=== PATIENT | male | born 1955 | race Caucasian/White ===

== ENCOUNTER 2016-09-09 20:36 | Observation (INO) ==
[2016-09-09 21:50] LABS: Basophils % 0.7 %; Eosinophils # 0.1 K/mcL (0.0-0.6); Eosinophils % 2.3 %; Hematocrit 38.7 % (37.5-50.1); Hemoglobin 13.5 g/dL (12.9-16.9); Immature Granulocytes % 0.3 % (0-4); Lymphocytes # 1.4 K/mcL (0.6-4.6); Lymphocytes % 23.8 %; Mean Corpuscular HGB Conc 34.9 g/dL (31.6-35.5); Mean Corpuscular Hemoglobin 32.4 pg (28.0-33.3); Mean Corpuscular Volume 92.8 fL (83.0-100.0); Mean Platelet Volume 10.1 fL (9.4-12.4); Monocytes # 0.7 K/mcL (0.0-1.3); Monocytes % 10.7 %; Neutrophils # 3.8 K/mcL (1.6-8.9); Platelet Count 207 K/mcL (140-400); Red Blood Count 4.17 M/mcL (4.19-5.50); Red Cell Distribution Width 11.2 % (11.5-14.5); Segmented Neutrophils % 62.2 %
[2016-09-09 21:55] LABS: INR 1.1; Prothrombin Time 11.9 Seconds (9.4-12.1)
[2016-09-09 22:04] LABS: BUN/Creatinine Ratio 12 (6-26); Blood Urea Nitrogen 10 mg/dL (8-26); Calcium 9.1 mg/dL (8.6-10.8); Carbon Dioxide 27 mEq/L (19-29); Chloride 103 mEq/L (98-109); Glucose 127 mg/dL (70-99); Osmolality,Calculated 289 (280-300); Potassium 3.7 mEq/L (3.5-4.5); Sodium 139 mEq/L (136-145); eGFR For African Americans > 60 (> 60); eGFR For Non-African Americans > 60 (> 60)
[2016-09-09] MEDS ORDERED: Aspirin 325 MG TABLET PO ONE (22:17)
[2016-09-09] MEDS ORDERED: Nitroglycerin 0.4 MG TAB.SUBL SL PRN (22:17)
[2016-09-09] MEDS ORDERED: levoFLOXacin 500 MG TABLET PO ONE (22:19)
[2016-09-09] MEDS ORDERED: *HR* Heparin 5,000 UNIT/ML VIAL IVP ONE (22:19)
[2016-09-09] MEDS ORDERED: *HR* Heparin 5,000 UNIT/ML VIAL IVP PRN ×2 (22:19)
--- NOTE | 2016-09-09 22:48 | Emergency Department Note ---
Disposition Clinical Impression: Elevated troponin Chest pain Qualifiers: Chest pain type: unspecified Qualified Code(s): R07.9 - Chest pain, unspecified Pneumonia Qualifiers: Pneumonia type: due to unspecified organism Laterality: right Lung location: upper lobe of lung Qualified Code(s): J18.1 - Lobar pneumonia, unspecified organism Disposition: Admitted As Inpatient Condition: Good Time of Disposition: 23:35 Chest Pain HPI - General Chief Complaint: ED Chest Pain Stated Complaint: Chest Pain Time Seen by Provider: 09/09/16 21:38 Source: patient Mode of arrival: ambulatory Limitations: no limitations Vital Signs Reviewed: Yes Nursing Notes Reviewed: Yes - History of Present Illness HPI Narrative: Patient is a 61-year-old male with past medical history of retention, diabetes, prostate cancer. He presents today due to right-sided chest pain. He states that this has occurred in the past couple weeks. However, with a past 3-4 hours , patient has had constant right-sided chest pain with radiation to the right upper extremity and left upper extremity, associated sweating and mild shortness of breath. He did not take any aspirin or nitroglycerin at home for this. He denies any nausea, vomiting, diarrhea, abdominal pain. He does admit to subjective fever and chills. He also admits to productive cough and says that he is on an antibiotic Z-Mauro and has 2 days left for bronchitis. Never had a heart attack or stenting in the past. He had a negative stress test several years ago but no recent stress test or heart. Severity scale (1-10): 3 - Related Data Home Medications Medication Instructions Recorded Confirmed Losartan Potassium [Cozaar] 100 mg PO DAILY 09/07/16 09/09/16 Acetaminophen [Tylenol] 325 mg PO Q6HR PRN 09/09/16 09/09/16 Albuterol Sulfate [Albuterol 2 puff IH Q4H PRN 09/09/16 09/09/16 Inhaler] Aspirin Enteric Coated [Aspirin EC] 81 mg PO DAILY 09/09/16 09/09/16 Cholecalciferol (D-3) [Vitamin D] 5,000 unit PO DAILY 09/09/16 09/09/16 Fluticasone Propionate Nasal 1 spray NS DAILY 09/09/16 09/09/16 [Flonase] Gabapentin [Neurontin] 300 mg PO BID 09/09/16 09/09/16 Metoprolol [Lopressor] 100 mg PO BID 09/09/16 09/09/16 [place]-3/Dha/Epa/Fish Oil [Fish Oil 1,000 mg PO DAILY 09/09/16 09/09/16 1,000 mg Softgel] Omeprazole [PriLOSEC] 40 mg PO DAILY 09/09/16 09/09/16 Rosuvastatin Calcium [Crestor] 10 mg PO HS 09/09/16 09/09/16 Spironolact/Hydrochlorothiazid 1 each PO DAILY 09/09/16 09/09/16 [Aldactazide 25-25 Tablet] Tramadol HCl [Ultram] 50 mg PO Q8H PRN 09/09/16 09/09/16 metFORMIN [Glucophage] 500 mg PO 0800 09/09/16 09/09/16 traZODone [TraZODone] 50 mg PO HS 09/09/16 09/09/16 Previous Rx's Medication Instructions Recorded Azithromycin [Azithromycin 6-Tab 250 mg PO PER PKG DI #6 tab 09/07/16 Pack] Benzonatate [Tessalon] 200 mg PO TID PRN #20 capsule 09/07/16 Ibuprofen [Motrin] 600 mg PO Q6HR PRN #20 tab 09/07/16 Allergies Allergy/AdvReac Type Severity Reaction Status Date / Time lisinopril [From Prinivil] Allergy Hives Verified 09/07/16 13:46 Penicillins [PCN] Allergy Hives Verified 09/07/16 13:46 All systems ED: reviewed and negative except as stated. Constitutional: Reports: fever (Active), chills Cardiovascular: Reports: chest pain Respiratory: Reports: dyspnea. Denies: cough, wheezes Gastrointestinal: Denies: abdominal pain, nausea, vomiting, diarrhea, constipation Musculoskeletal: Denies: back pain Neurological: Denies: headache, weakness, numbness, paresthesias Chest Pain PMH - Past Medical History Medical history: Reports: cancer, diabetes, hypertension - Social History Smoking Status: Never smoker Alcohol use: Reports: occasionally Drug use: Reports: none Physical Exam - General Limitations: no limitations General appearance: alert, in no apparent distress - Head Head exam: atraumatic, normocephalic, normal inspection - Eye Eye exam: Present: normal appearance, PERRL, EOMI - ENT ENT exam: normal exam, normal oropharynx, mucous membranes moist - Neck Neck exam: Present: normal inspection, full ROM, trachea midline - Chest Chest inspection: Present: normal inspection, symmetric chest wall rise. Absent : tenderness - Respiratory Respiratory exam: Present: other (Mild decreased aeration right upper and right lower lobe). Absent: wheezes - Cardiovascular Cardiovascular exam: Present: regular rate, normal rhythm, normal heart sounds - Abdominal Exam Abdominal exam: Present: soft, Non-Tender. Absent: tenderness, distention, guarding, rebound, rigidity - Extremities Exam Extremities exam: Present: normal inspection, full ROM. Absent: tenderness, pedal edema - Neurological Exam Neurological exam: Present: alert, oriented X3 - Psychiatric Psychiatric exam: Present: normal affect, normal mood - Skin Skin exam: Present: warm, dry, intact, normal color Course Course Narrative: Patient hypertensive on presentation. He had decreased aeration in the right upper and right lower lobe. No acute distress on exam. Heart regular rate and rhythm. No tenderness of the chest. No abdominal pain or tenderness. Cardiac workup was completed. Basic blood work showed no major abnormality. However, troponin was elevated 0.04. Patient was given aspirin 325 mg and was started on a heparin drip after discussion of risks versus benefit for possible ACS such as an NSTEMI. Chest x-ray showed possible right upper lobe pneumonia. Patient given Levaquin for this. Patient was admitted to the hospitalist for chest pain rule out and pneumonia. Chest X-Ray 09/09/16 20:41 IMPRESSION: Focal ground-glass airspace opacification in the right upper lobe. Pattern may represent atelectasis or developing pneumonia. D/ / Cesar Arriaga MD / Cesar Arriaga MD Interpreting Provider: Cesar Arriaga MD Vital Signs Temperature 98.4 F 09/09/16 20:38 Pulse Rate 70 09/09/16 20:38 Respiratory Rate 20 09/09/16 20:38 Blood Pressure 183/90 09/09/16 20:38 O2 Sat by Pulse Oximetry 95 09/09/16 20:38 Temperature 98.3 F 09/10/16 07:04 Pulse Rate 63 09/10/16 07:04 Respiratory Rate 18 09/10/16 07:34 Blood Pressure 152/82 09/10/16 07:04 O2 Sat by Pulse Oximetry 96 09/10/16 07:34 Oxygen Delivery Oxygen Delivery Room Air Chest Pain - MDM Narrative Medical decision making narrative: Patient hypertensive on presentation. He had decreased aeration in the right upper and right lower lobe. No acute distress on exam. Heart regular rate and rhythm. No tenderness of the chest. No abdominal pain or tenderness. Cardiac workup was completed. Basic blood work showed no major abnormality. However, troponin was elevated 0.04. Patient was given aspirin 325 mg and was started on a heparin drip after discussion of risks versus benefit for possible ACS such as an NSTEMI. Chest x-ray showed possible right upper lobe pneumonia. Patient given Levaquin for this. Patient was admitted to the hospitalist for chest pain rule out and pneumonia. - Medical Records Medical records reviewed: Yes I reviewed the patient's medical records. - Lab Data Lab results reviewed: Yes I reviewed the patient's lab results. Result diagrams: 09/10/16 05:07 09/10/16 05:07 Lab Results 09/09/16 09/09/16 09/09/16 Range/Units 21:42 21:42 21:42 WBC 6.1 (4.3-11.1) K/mcL RBC 4.17 L (4.19-5.50) M/mcL Hgb 13.5 (12.9-16.9) g/dL Hct 38.7 (37.5-50.1) % MCV 92.8 (83.0-100.0) fL MCH 32.4 (28.0-33.3) pg MCHC 34.9 (31.6-35.5) g/dL RDW 11.2 L (11.5-14.5) % Plt Count 207 (140-400) K/mcL MPV 10.1 (9.4-12.4) fL Immature Gran % 0.3 (0-4) % Seg Neutrophils % 62.2 % Lymphocytes % 23.8 % Monocytes % 10.7 % Eosinophils % 2.3 % Basophils % 0.7 % Neutrophils # 3.8 (1.6-8.9) K/mcL Lymphocytes # 1.4 (0.6-4.6) K/mcL Monocytes # 0.7 (0.0-1.3) K/mcL Eosinophils # 0.1 (0.0-0.6) K/mcL Basophils # 0.0 (0.0-0.2) K/mcL PT 11.9 (9.4-12.1) Seconds INR 1.1 APTT 36.0 (26.0-36.0) Seconds Sodium 139 (136-145) mEq/L Potassium 3.7 (3.5-4.5) mEq/L Chloride 103 (98-109) mEq/L Carbon Dioxide 27 (19-29) mEq/L BUN 10 (8-26) mg/dL Creatinine 0.84 (0.72-1.25) mg/dL Est GFR ( Amer) > 60 (> 60) Est GFR (Non-Af Amer) > 60 (> 60) BUN/Creatinine Ratio 12 (6-26) Glucose 127 H (70-99) mg/dL Calculated Osmolality 289 (280-300) Calcium 9.1 (8.6-10.8) mg/dL Troponin I (0-0.03) ng/mL 09/09/16 Range/Units 21:42 WBC (4.3-11.1) K/mcL RBC (4.19-5.50) M/mcL Hgb (12.9-16.9) g/dL Hct (37.5-50.1) % MCV (83.0-100.0) fL MCH (28.0-33.3) pg MCHC (31.6-35.5) g/dL RDW (11.5-14.5) % Plt Count (140-400) K/mcL MPV (9.4-12.4) fL Immature Gran % (0-4) % Seg Neutrophils % % Lymphocytes % % Monocytes % % Eosinophils % % Basophils % % Neutrophils # (1.6-8.9) K/mcL Lymphocytes # (0.6-4.6) K/mcL Monocytes # (0.0-1.3) K/mcL Eosinophils # (0.0-0.6) K/mcL Basophils # (0.0-0.2) K/mcL PT (9.4-12.1) Seconds INR APTT (26.0-36.0) Seconds Sodium (136-145) mEq/L Potassium (3.5-4.5) mEq/L Chloride (98-109) mEq/L Carbon Dioxide (19-29) mEq/L BUN (8-26) mg/dL Creatinine (0.72-1.25) mg/dL Est GFR ( Amer) (> 60) Est GFR (Non-Af Amer) (> 60) BUN/Creatinine Ratio (6-26) Glucose (70-99) mg/dL Calculated Osmolality (280-300) Calcium (8.6-10.8) mg/dL Troponin I 0.04 H* (0-0.03) ng/mL - Radiology Data Radiology results reviewed: Yes I reviewed the patient's radiology results. Chest X-Ray 09/09/16 20:41 IMPRESSION: Focal ground-glass airspace opacification in the right upper lobe. Pattern may represent atelectasis or developing pneumonia. D/ / Cesar Arriaga MD / Cesar Arriaga MD Interpreting Provider: Cesar Arriaga MD - EKG Data EKG attestation: Yes I reviewed and interpreted this EKG. EKG results narrative: 09/09/2016 at 20:40. Sinus rhythm. Rate 67. CO 147. QRS 84. QTC 415. Normal axis. No acute ST elevation or depression. Heart Score - Score History: Moderately Suspicious EKG: Normal Age: 45-65 Risk Factors: 1-2 risk factors Troponin: 1-3x normal limit HEART Score Total: 4 S.B.A.R. - S.B.A.R. Situation: Demographics, MOA Background: Presenting Complaint, Relevant PMH, Meds, & Allergies Assessment: Vital Signs, Course and respsone to treatment, Exam Concerns, Patient/Family Expectation, Pertinant Lab Results, Outstanding Labs Recommendation: Barrier(s) to disposition, Recommendation based on pending studies, treatments, or consults S.B.A.R. Report Given to: Dr. Gloria Alas Repor Time: 23:34 Attestation Statement - Attestation Attestation: I examined this patient and my medical decision-making was reviewed with the INSTRUMENTATION AND CONTROLS TECHNICIAN/PA/Advanced Practice Nurse/Resident Physician. I agree with the documented findings, disposition and treatment plan as described except to the extent set forth below. Patient with chest pain. Patient states the pain is rated some into his back and some into his arms. No cardiac history. States he had a stress test years ago. On examination he is in no distress. Stable vitals. Lungs clear. Plan. The patient has a normal EKG. No ST segment changes or T-wave inversions. The positive troponin at 0.04. He is given a nitroglycerin trial. We will start him on heparin. Patient will be admitted to medicine. PE considered with his history of prostate cancer. He is not tachycardic or hypoxic. Chest pain is believed to be cardiac. He started on a heparin drip. Patient pain-free at the time of admission. 30 minutes of critical care course of separately billable procedures.
[2016-09-09] MEDS: Heparin 25,000 UNIT/500 ML D5W 25,000 UNIT/500 ML MLS IVC SCH (23:27)
[2016-09-10] MEDS ORDERED: Naloxone 0.4 MG/ML INJ IVP PRN (02:56)
[2016-09-10] MEDS ORDERED: Ondansetron 4 MG/2 ML VIAL IVP PRN (02:56)
[2016-09-10] MEDS ORDERED: Acetaminophen 325 MG TABLET PO PRN (02:56)
[2016-09-10] MEDS ORDERED: Benzonatate 100 MG CAPSULE PO PRN (02:58)
[2016-09-10] MEDS ORDERED: traMADol 50 MG TABLET PO PRN (02:58)
[2016-09-10] MEDS ORDERED: D5% in Water 1,000 ML IVC PRN (03:01)
[2016-09-10] MEDS ORDERED: Dextrose Gel 15 GM PO PRN ×2 (03:01)
[2016-09-10] MEDS ORDERED: *HR* Dextrose 50 % in Water (Syg) 50 ML SYRINGE IVP PRN (03:01)
--- NOTE | 2016-09-10 04:20 | Internal Med History&Physical ---
Date of Encounter: 09/10/16 Time of Encounter: 02:45 Assessment and Plan (1) Chest pain Current visit: Yes Status: Acute probably related to Pneumonia and pleuritic pain. Does have slight Troponin elevation, to consider ACS. Started on IV Heparin drip by ER; cycle Troponins and consider holding anticoagulation if trending down. Telemetry monitoring. Check 2D Echocardiogram. Troponin elevation could be due to uncontrolled HTN at Triage; Qualifiers: Chest pain type: unspecified Qualified Code(s): R07.9 - Chest pain, unspecified (2) Pneumonia Current visit: Yes Status: Acute chest XRay shows possible RUL ground glass opacities. Continue PO Levaquin; does not require supplemental O2 at this time; Qualifiers: Pneumonia type: due to unspecified organism Laterality: right Lung location: upper lobe of lung Qualified Code(s): J18.1 - Lobar pneumonia, unspecified organism (3) Essential hypertension Current visit: Yes Status: Chronic uncontrolled at admission; currently better controlled; resume home meds; (4) Diabetes mellitus Current visit: Yes Status: Chronic Accucheck blood glucose monitoring with sliding scale insulin; diabetic diet; Qualifiers: Diabetes mellitus type: type 2 Diabetes mellitus complication status: with unspecified complications Diabetes mellitus buttermaker insulin use: without penitentiary use Qualified Code(s): E11.8 - Type 2 diabetes mellitus with unspecified complications (5) Prostate cancer Current visit: Yes Status: Chronic outpatient Oncology f/up; noted to have recent recurrence, undergoing evaluation for radiochemotherapy; Internal Medicine - H&P: HPI Chief complaint: Chest pain Admitted From: Emergency Dept Plans for Post Hospital Care: Home History of present illness: Mr. Tomlin is a 61 year old male with history of hypertension and diabetes, who presents with complaints of sudden onset of right-sided chest pain that started earlier this evening. 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 No similar previous episodes. Patient was recently evaluated by his primary care provider for respiratory symptoms of cough and mild dyspnea, chills and has been prescribed Z-Mauro, which she has been using. He currently reports productive cough with greenish sputum associated with subjective chills and some shortness of breath. Last stress test has been a few years back, at which time it was normal. Past Med Surg Social Fam HX - Past Medical History Medical history: cancer (Prostate cancer status post resection), diabetes, hypertension - Past Surgical History Surgical History: other (Tonsillectomy, TURP) - Social History Smoking Status: Former smoker Smokeless Tobacco Status: Yes (chews tobacco) Alcohol use: occasionally Drug use: none Occupational status: employed Current living situation: Home, With Family Activity Level: Independent ambulation Recent Out of Country Travel Within the Last 8 Weeks: No Exposure or Possible Exposure to Illness During Travel: No - Family History Father Hx Family Cardiac Disorders: Yes (CAD) Hx Family Endocrine Disorder: Yes (DM) Brother Hx Family Cancer: Yes (prostate cancer) Internal Medicine - H&P: Meds Azithromycin [Azithromycin 6-Tab Pack] 250 mg PO PER PKG DI #6 tab 09/07/16 [Rx] Benzonatate [Tessalon] 200 mg PO TID PRN #20 capsule 09/07/16 [Rx] Ibuprofen [Motrin] 600 mg PO Q6HR PRN #20 tab 09/07/16 [Rx] Losartan Potassium [Cozaar] 100 mg PO DAILY 09/07/16 [History] Acetaminophen [Tylenol] 325 mg PO Q6HR PRN 09/09/16 [History] Albuterol Sulfate [Albuterol Inhaler] 2 puff IH Q4H PRN 09/09/16 [History] Aspirin Enteric Coated [Aspirin EC] 81 mg PO DAILY 09/09/16 [History] Cholecalciferol (D-3) [Vitamin D] 5,000 unit PO DAILY 09/09/16 [History] Fluticasone Propionate Nasal [Flonase] 1 spray NS DAILY 09/09/16 [History] Gabapentin [Neurontin] 300 mg PO BID 09/09/16 [History] Metoprolol [Lopressor] 100 mg PO BID 09/09/16 [History] [place]-3/Dha/Epa/Fish Oil [Fish Oil 1,000 mg Softgel] 1,000 mg PO DAILY 09/09/16 [History] Omeprazole [PriLOSEC] 40 mg PO DAILY 09/09/16 [History] Rosuvastatin Calcium [Crestor] 10 mg PO HS 09/09/16 [History] Spironolact/Hydrochlorothiazid [Aldactazide 25-25 Tablet] 1 each PO DAILY [History] Tramadol HCl [Ultram] 50 mg PO Q8H PRN 09/09/16 [History] metFORMIN [Glucophage] 500 mg PO 0800 09/09/16 [History] traZODone [TraZODone] 50 mg PO HS 09/09/16 [History] Allergies lisinopril [From Prinivil] Allergy (Verified 09/07/16 13:46) Hives Penicillins [PCN] Allergy (Verified 09/07/16 13:46) Hives All Systems PM: A 10-system review of systems was performed and is negative for pertinent findings except as documented above in the HPI. - Constitutional Constitutional: chills, fever(s), weakness - EENT Eyes: no change in vision, no discharge, no pain, no photophobia Ears: no ear discharge, no ear pain, no tinnitus Nose, mouth and throat: no dysphagia, no nasal discharge, no neck pain, no sore throat - Cardiovascular Cardiovascular ROS IM: chest pain - Respiratory Respiratory: cough, dyspnea, chest congestion, excessive phlegm production - Gastrointestinal Gastrointestinal: no abdominal pain, no diarrhea, no hematemesis, no hematochezia, no melena, no nausea, no vomiting - Musculoskeletal Musculoskeletal ROS IM: no numbness, no tingling - Integumentary Integumentary IM: no rash, no unusual bruising - Neurological Neurological ROS: no confusion, no convulsions, no focal weakness, no numbness, no tingling, no tremor(s) - Hematologic/Lymphatic Hematologic/Lymphatic: no easy bruising - Constitutional Vitals: Temp Pulse Resp BP Pulse Ox 97.9 F 66 17 157/99 96 09/10/16 00:30 09/10/16 00:30 09/10/16 04:03 09/10/16 00:30 09/10/16 04:03 General appearance: Present: A&O X 3, answers questions appropriately - Respiratory Respiratory exam: Present: CTAB. Absent: accessory muscle use, rales, rhonchi, wheezes - Cardiovascular Cardiovascular exam: Present: RRR, +S1, +S2. Absent: diastolic murmur, gallop, rubs, systolic murmur - GI/Abdominal GI/Abdominal exam: Present: normal bowel sounds, soft, no peritoneal signs. Absent: distended, tenderness - Extremities Exam Extremities exam: Present: full ROM, warm, radial pulses palpable and symetrical. Absent: calf tenderness, cyanotic, pedal edema - Neurological Exam Neurological exam: Present: CN II-XII intact, oriented X3, no focal deficits. Absent: pronater drift, facial droop, speech deficit - Skin Skin exam: Present: dry, intact Internal Med - H&P Results - Labs CBC & Chem 7: 09/09/16 21:42 09/09/16 21:42 - EKG Data -: EKG Interpreted by Myself EKG shows normal: sinus rhythm Rate: normal
[2016-09-10 05:25] LABS: Basophils % 0.6 %; Eosinophils # 0.2 K/mcL (0.0-0.6); Eosinophils % 3.9 %; Hematocrit 39.2 % (37.5-50.1); Hemoglobin 13.5 g/dL (12.9-16.9); Immature Granulocytes % 0.4 % (0-4); Lymphocytes # 2.3 K/mcL (0.6-4.6); Lymphocytes % 43.8 %; Mean Corpuscular HGB Conc 34.4 g/dL (31.6-35.5); Mean Corpuscular Hemoglobin 31.9 pg (28.0-33.3); Mean Corpuscular Volume 92.7 fL (83.0-100.0); Mean Platelet Volume 10.2 fL (9.4-12.4); Monocytes # 0.6 K/mcL (0.0-1.3); Monocytes % 10.7 %; Neutrophils # 2.1 K/mcL (1.6-8.9); Platelet Count 203 K/mcL (140-400); Red Blood Count 4.23 M/mcL (4.19-5.50); Red Cell Distribution Width 11.3 % (11.5-14.5); Segmented Neutrophils % 40.6 %
[2016-09-10 05:31] LABS: BUN/Creatinine Ratio 11 (6-26); Blood Urea Nitrogen 9 mg/dL (8-26); Carbon Dioxide 25 mEq/L (19-29); Chloride 104 mEq/L (98-109); Chol/HDL Ratio 4.2 (0-4.9); Cholesterol 106 mg/dL (< 200); Glucose 140 mg/dL (70-99); HDL Cholesterol 25 mg/dL (40-59); LDL Cholesterol,Calculated 51 mg/dL (0-99); Osmolality,Calculated 287 (280-300); Potassium 3.5 mEq/L (3.5-4.5); Sodium 138 mEq/L (136-145); Triglycerides 152 mg/dL (< 150); eGFR For African Americans > 60 (> 60); eGFR For Non-African Americans > 60 (> 60)
[2016-09-10] MEDS: Insulin LISPRO 300 UNITS/3 ML VIAL SQ SCH ×4 (07:45→20:19)
[2016-09-10] MEDS ORDERED: Spironolactone 25 MG TABLET PO SCH (09:00)
--- NOTE | 2016-09-10 09:48 | Cardiology Consult Note ---
Date of Encounter: 09/10/16 Time of Encounter: 08:30 Assessment and Plan (1) Pneumonia Current Visit: Yes Status: Acute Per cardiology: -Right upper lobe pneumonia per chest x-ray. -Admits to right sided chest pain, productive cough with green sputum, and fever. -On ATB. -Management per primary service. Qualifiers: Pneumonia type: due to unspecified organism Laterality: right Lung location: upper lobe of lung Qualified Code(s): J18.1 - Lobar pneumonia, unspecified organism (2) Chest pain Current Visit: Yes Status: Acute Per cardiology: -Patient admits to right sided chest pain, consistent with pneumonia per chest x -ray. -Denies left sided chest pain. -Denies pain with excertion. -Will continue to monitor. Qualifiers: Chest pain type: unspecified Qualified Code(s): R07.9 - Chest pain, unspecified (3) Elevated troponin Current Visit: Yes Status: Acute Per cardiology: -No known history of CAD. -ELevated troponin 0.04, 1.73, 1.72. -Troponin elevated in the setting on pneumonia, and HTN. -BP 180s on admission -Denies left sided chest pain. Denies chest pain with excertion. -Admits to right sided chest pain that was constant. -ON heparin drip. -ON asa, statin, beta ibis, and ARB. -Echo pending. -Repeat troponin pending. -Further recommendations pending echo and repeat troponin. -Will order cardiac rehab. (4) Essential hypertension Current Visit: Yes Status: Chronic Per cardiology: -Known history of HTN. -Hypertensive on admission with SBP 180s. -BPs better controlled now with SBP 130-150s. -On beta ibis and ARB. -Will continue to monitor. (5) Prostate cancer Current Visit: Yes Status: Chronic Per cardiology: -Known history of prostate CA. -Patient states recurrence. -Follows with oncology. -Management per primary service. Discussion w patient/family: The assessment and plan as outlined above was discussed with the patient and/or family members who expressed understanding and agreement. All questions were answered. Thank you for involving us in the care of your patient. Please call with any questions. Discussed and reviewed with . History of Present Illness Consult date: 09/10/16 Requesting physician: Elena Dunn Consult reason: elevated troponin, chest pain Chief complaint: chest pain History of present illness: Mr. Tomlin is a 61 year old male with a relevant past medical history of hypertension, hyperlipidemia, DM, previous smoker with a 60pack year history. Patient states he quit smoking 3.5 years ago. Patient states he has not been feeling well since Thursday. Patient states he has had a fever and chills. Patient states on Thursday, he developed right sided chest pain and productive cough with green sputum. Patient states he went to urgent care and was being treated for bronchitis. Patient states yesterday pain increased so he presented to ER. Patient states chest pain was mostly located in right side of chest and was dull. Patient admits to pain radiating to left chest. Patient denies chest pain with excertion. Patient denies aggervating or alleviating factors for chest pain. Patient denies previous cardiac history, states he had a negative stress test several years ago. Patient states father with cardiac history and MS and in his 70s. Past Med Surg Social Fam HX - Past Medical History Attestation: Yes The following information was validated with the patient. Source: patient, old records reviewed, obtained from family Medical history: cancer, diabetes, hypertension - Past Surgical History Surgical History: other (Tonsillectomy, TURP) - Social History Smoking Status: Never smoker Smokeless Tobacco Status: Yes (chews tobacco) Alcohol use: occasionally Drug use: none - Family History Father Hx Family Cardiac Disorders: Yes (CAD) Hx Family Endocrine Disorder: Yes (DM) Brother Hx Family Cancer: Yes (prostate cancer) Medications and Allergies Azithromycin [Azithromycin 6-Tab Pack] 250 mg PO PER PKG DI #6 tab 09/07/16 [Rx] Benzonatate [Tessalon] 200 mg PO TID PRN #20 capsule 09/07/16 [Rx] Ibuprofen [Motrin] 600 mg PO Q6HR PRN #20 tab 09/07/16 [Rx] Losartan Potassium [Cozaar] 100 mg PO DAILY 09/07/16 [History] Acetaminophen [Tylenol] 325 mg PO Q6HR PRN 09/09/16 [History] Albuterol Sulfate [Albuterol Inhaler] 2 puff IH Q4H PRN 09/09/16 [History] Aspirin Enteric Coated [Aspirin EC] 81 mg PO DAILY 09/09/16 [History] Cholecalciferol (D-3) [Vitamin D] 5,000 unit PO DAILY 09/09/16 [History] Fluticasone Propionate Nasal [Flonase] 1 spray NS DAILY 09/09/16 [History] Gabapentin [Neurontin] 300 mg PO BID 09/09/16 [History] Metoprolol [Lopressor] 100 mg PO BID 09/09/16 [History] [place]-3/Dha/Epa/Fish Oil [Fish Oil 1,000 mg Softgel] 1,000 mg PO DAILY 09/09/16 [History] Omeprazole [PriLOSEC] 40 mg PO DAILY 09/09/16 [History] Rosuvastatin Calcium [Crestor] 10 mg PO HS 09/09/16 [History] Spironolact/Hydrochlorothiazid [Aldactazide 25-25 Tablet] 1 each PO DAILY [History] Tramadol HCl [Ultram] 50 mg PO Q8H PRN 09/09/16 [History] metFORMIN [Glucophage] 500 mg PO 0800 09/09/16 [History] traZODone [TraZODone] 50 mg PO HS 09/09/16 [History] Allergies lisinopril [From Prinivil] Allergy (Verified 09/07/16 13:46) Hives Penicillins [PCN] Allergy (Verified 09/07/16 13:46) Hives All Systems Review: A 10-system review of systems was performed and is negative for pertinent findings except as documented above in the HPI. - Cardiovascular Cardiovascular: as per HPI, chest pain at rest - Respiratory Respiratory: cough, dyspnea Physical Examination Vital Signs, Last 4 Hours Temp Pulse Resp BP Pulse Ox 09/10/16 07:34 18 96 09/10/16 07:04 98.3 F 63 16 152/82 97 General: Conversant, No Apparent Distress HEENT: Atraumatic, Normocephaly, Mucus Membranes Moist Neck: No JVD, Normal carotid pulses Cardiac: Reg Rate and Rhythm, Normal S1 and S2, No Murmur Lungs: Other (Right lung with diminished breath sounds. ) Neuro: Alert and responsive, No focal deficits noted Abdomen: Soft, Non-Tender Skin: No rashes noted on visualized skin Musculoskeletal: No Chest Wall Tenderness Extremities: No Clubbing, No Cyanosis, No Edema, Normal Pulses Results 09/10/16 05:07 09/10/16 05:07 Lab Results Impressions Chest X-Ray 09/09/16 20:41 IMPRESSION: Focal ground-glass airspace opacification in the right upper lobe. Pattern may represent atelectasis or developing pneumonia. D/ / Cesar Arriaga MD / Cesar Arriaga MD Interpreting Provider: Cesar Arriaga MD Active Medications Acetaminophen (Tylenol) 650 mg PO Q6HR PRN PRN Reason: Mild Pain (1-3) Stop: 03/12/17 02:57 Albuterol Sulfate (Albuterol Inhaler) 2 puff IH [id number] WILLIE Stop: 03/12/17 04:01 Last Admin: 09/10/16 07:32 Dose: 2 puff Aspirin (Aspirin Ec) 81 mg PO DAILY [facility] Stop: 03/12/17 09:01 Benzonatate (Tessalon) 200 mg PO TID PRN PRN Reason: Cough Dextrose/Water (Dextrose 50% (Syg)) 25 ml IVP AD PRN PRN Reason: Hypoglycemia Stop: 03/12/17 03:02 Fluticasone Propionate (Flonase) 50 mcg NS DAILY WILLIE PRN Reason: Protocol Stop: 03/12/17 09:01 Gabapentin (Neurontin) 300 mg PO BID [facility] Stop: 03/12/17 09:01 Glucagon (Glucagen) 1 mg IM ONCE PRN PRN Reason: Hypoglycemia Stop: 03/12/17 03:02 Glucose (Gluctose) 15 gm PO ONCE PRN PRN Reason: Hypoglycemia Stop: 03/12/17 03:02 Glucose (Gluctose) 30 gm PO ONCE PRN PRN Reason: Hypoglycemia Stop: 03/12/17 03:02 Heparin Sodium (Porcine) (Heparin) 4,000 unit IVP Q6HR PRN PRN Reason: SEE COMMENTS Stop: 03/11/17 22:20 Heparin Sodium (Porcine) (Heparin) 2,000 unit IVP Q6H PRN PRN Reason: SEE COMMENTS Stop: 03/11/17 22:20 Hydrochlorothiazide (Hydrochlorothiazide) 25 mg PO DAILY WILLIE Stop: 03/12/17 09:01 Heparin Sodium/Dextrose (Heparin 25,000 Unit/500 Ml D5w) 25,000 unit in 500 mls @ 26.127 mls/hr IVC .Q19H9M WILLIE; 12 UNIT/KG/HR PRN Reason: Protocol Stop: 03/11/17 22:31 Last Titration: 09/10/16 05:07 Dose: 12 unit/kg/hr, 26.127 mls/hr Dextrose (Dextrose 5%) 1,000 mls @ 100 mls/hr IVC .Q10H PRN PRN Reason: HYPOGLYCEMIA Stop: 03/12/17 03:02 Insulin Human Lispro (Humalog) 0 units SQ TIDAC WILLIE PRN Reason: Protocol Stop: 03/12/17 07:31 Last Admin: 09/10/16 07:45 Dose: Not Given Insulin Human Lispro (Humalog) 0 units SQ HS WILLIE PRN Reason: Protocol Stop: 03/12/17 21:01 Losartan Potassium (Cozaar) 100 mg PO DAILY [facility] Stop: 03/12/17 09:01 Metoprolol Tartrate (Lopressor) 100 mg PO BID [facility] Stop: 03/12/17 09:01 Naloxone HCl (Narcan) 0.4 mg IVP Q2MIN PRN PRN Reason: Opioid Reversal Stop: 03/12/17 02:57 Nitroglycerin (Nitroglycerin) 0.4 mg SL Q5MIN PRN PRN Reason: Chest Pain Stop: 03/11/17 22:18 Omeprazole (Prilosec) 40 mg PO DAILY [facility] Stop: 03/12/17 09:01 Ondansetron HCl (Zofran) 4 mg IVP Q8HR PRN PRN Reason: Nausea And Vomiting Stop: 03/12/17 02:57 Pharmacy Profile Note (Patient Taking Own Medication) 0 each PO DAILY [facility] Stop: 03/12/17 09:01 Simvastatin (Zocor) 40 mg PO HS [facility] Stop: 03/12/17 21:01 Spironolactone (Aldactone) 1 mg PO DAILY [facility] Stop: 03/12/17 09:01 Tramadol HCl (Ultram) 50 mg PO Q8H PRN PRN Reason: Pain Stop: 03/12/17 02:59 Trazodone HCl (Trazodone) 50 mg PO HS [facility] Stop: 03/12/17 21:01 Vitamin D (Vitamin D) 1,000 unit PO DAILY WILLIE Stop: 03/12/17 09:01 Laboratory Tests 09/09/16 09/10/16 09/10/16 21:42 05:07 05:07 Hgb 13.5 Creatinine Troponin I 0.04 H* 1.73 H* Triglycerides Cholesterol LDL Cholesterol, Calc HDL Cholesterol 09/10/16 09/10/16 05:07 08:55 Hgb Creatinine 0.81 Troponin I 1.72 H* Triglycerides 152 H Cholesterol 106 LDL Cholesterol, Calc 51 HDL Cholesterol 25 L - Imaging and Cardiology Chest Xray: report reviewed Echo: pending - EKG Interpretation EKG results cardiology: personally reviewed (ECG reviewed with sinus rhythm, HR 67.), other (Telemetry reviewed with average HR 63, Minimum HR 52 at 0224. PVCs and PACs noted.) Consult Discharge Plan - Plan Referrals: Rudi Gutierres DO [Primary Care Provider] -
[2016-09-10] MEDS: Aspirin Enteric Coated 81 MG Tablet PO SCH (11:59)
[2016-09-10] MEDS: Fluticasone Propionate Nasal 50 MCG/SPRAY BOTTLE NS SCH (12:00)
[2016-09-10] MEDS: (Fish Oil 1,000 Mg Softgel) PO SCH (12:01)
[2016-09-10] MEDS: Gabapentin 300 MG CAPSULE PO SCH ×2 (12:01→20:23)
[2016-09-10] MEDS: Metoprolol 100 MG TABLET PO SCH ×2 (12:01→20:23)
[2016-09-10] MEDS: Cholecalciferol (D-3) 1,000 UNIT TABLET PO SCH (12:01)
[2016-09-10] MEDS: Spironolactone 25 MG TABLET PO SCH (12:10)
[2016-09-10] MEDS: hydroCHLOROthiazide 25 MG TABLET PO SCH (12:10)
--- NOTE | 2016-09-10 13:16 | Internal Med Progress Note ---
<Janice Robison - Last Filed: 09/10/16 14:07> Date of Encounter: 09/10/16 Time of Encounter: 11:45 - Assessment and plan (1) Elevated troponin Current Visit: Yes Status: Acute Assessment and plan: - First troponin at 0.04 but elevated to 1.73 and then stable at 1.72. - Currently on aspirin, statin, beta ibis, ARB and heparin drip. - Cardiology on board and is waiting for echocardiogram result to determine if patient needs cardiac cath. Appreciate cardiology assistance on patient care. - Continue to trend troponin. - Closely monitor with telemetry. (2) Pneumonia Current Visit: Yes Status: Acute Assessment and plan: - Patient still has some productive cough with greenish sputum despite of being on azithromycin prior to admission. - CXR showed focal ground-glass RUL airspace opacification suggestive of developing pnemonia vs. atelectasis. - Will obtain sputum culture with gram stain and check urine antigens for Legionella & S. pneumoniae. - Continue levofloxacin for community acquired pneumonia and de-escalate later based on clinical findings and/or culture result. Qualifiers: Pneumonia type: due to unspecified organism Laterality: right Lung location: upper lobe of lung Qualified Code(s): J18.1 - Lobar pneumonia, unspecified organism (3) Chest pain Current Visit: Yes Status: Acute Assessment and plan: - Right-sided chest pain on admission. No modifying factors noted. - Likely secondary to pneumonia but cannot completely rule out cardiac cause, especially given his elevated troponin. - Significantly improves as patient reports no more chest pain. Qualifiers: Chest pain type: unspecified Qualified Code(s): R07.9 - Chest pain, unspecified (4) Essential hypertension Current Visit: Yes Status: Chronic Assessment and plan: - Continue current antihypertensive regimen. (5) Diabetes mellitus Current Visit: Yes Status: Chronic Assessment and plan: - Insulin sliding scale with routine glucose monitoring. Qualifiers: Diabetes mellitus type: type 2 Diabetes mellitus complication status: with unspecified complications Diabetes mellitus correction insulin use: without joint terminal attack controller use Qualified Code(s): E11.8 - Type 2 diabetes mellitus with unspecified complications (6) Prostate cancer Current Visit: Yes Status: Chronic Assessment and plan: - Noted to have recent recurrence and undergoing evaluation for radiochemotherapy. - Will have patient follow up with oncology outpatiently. - Subjective Interval history: This not is not for billing purpose. Patient was seen and examined this morning. Patient reports no more chest pain or shortness of breath. Patient still has productive cough with greenish sputum and per patient, the azithromycin he started 3 days prior to admission does not help much. Patient denies fever, chills, nausea, vomiting, diarrhea, lightheadedness, syncope. - Constitutional Vitals: Temp Pulse Resp BP Pulse Ox 98.0 F 70 18 169/91 96 09/10/16 11:09 09/10/16 11:09 09/10/16 11:30 09/10/16 11:09/10/16 11:30 General appearance: Present: cooperative, A&O X 3, no acute distress, answers questions appropriately - Head Head exam: Present: atraumatic, normocephalic - Eye Eye exam: Present: EOMI, PERRL, conjuntiva pink, sclera anicteric - Neck Neck exam general surgery: Present: supple, trachea midline. Absent: lymphadenopathy - Respiratory Respiratory exam: Present: rales (Questionable crackles at right upper/middle lung area.). Absent: accessory muscle use, rhonchi, wheezes - Cardiovascular Cardiovascular exam: Present: RRR, +S1, +S2. Absent: diastolic murmur, gallop, rubs, systolic murmur - GI/Abdominal GI/Abdominal exam: Present: normal bowel sounds, soft, no peritoneal signs. Absent: distended, tenderness - Extremities Exam Extremities exam: Present: warm, radial pulses palpable and symetrical. Absent : calf tenderness, cyanotic, pedal edema - Neurological Exam Neurological exam: Present: CN II-XII intact, oriented X3, no focal deficits. Absent: pronater drift, facial droop, speech deficit - Skin Skin exam: Present: dry, intact, warm Internal Medicine: Result - Labs CBC & Chem 7: 09/10/16 05:07 09/10/16 05:07 Labs: Short CBC 09/10/16 Range/Units 05:07 WBC 5.1 (4.3-11.1) K/mcL Hgb 13.5 (12.9-16.9) g/dL Hct 39.2 (37.5-50.1) % Plt Count 203 (140-400) K/mcL Neutrophils # 2.1 (1.6-8.9) K/mcL BMP 09/10/16 05:07 Sodium 138 Potassium 3.5 Chloride 104 Carbon Dioxide 25 BUN 9 Creatinine 0.81 Glucose 140 H Calcium 9.0 Cardiac Enzymes 09/10/16 09/10/16 Range/Units 05:07 08:55 Troponin I 1.73 H* 1.72 H* (0-0.03) ng/mL - ABG Interpretation ABG results: PT/INR, D-dimer PT 11.9 Seconds (9.4-12.1) 09/09/16 21:42 - Impressions Impressions Chest X-Ray 09/09/16 20:41 IMPRESSION: Focal ground-glass airspace opacification in the right upper lobe. Pattern may represent atelectasis or developing pneumonia. D/ / Cesar Arriaga MD / Cesar Arriaga MD Interpreting Provider: Cesar Arriaga MD Consult Discharge Plan - Plan Referrals: Rudi Gutierres DO [Primary Care Provider] - 09/17/16 11:30 am <Ata Guerrero - Last Filed: 09/10/16 18:27> Date of Encounter: 09/10/16 - Constitutional Vitals: Temp Pulse Resp BP Pulse Ox 98.7 F 65 17 160/86 97 09/10/16 15:58 09/10/16 15:58 09/10/16 16:31 09/10/16 15:58 09/10/16 16:31 Internal Medicine: Result - Labs CBC & Chem 7: 09/10/16 05:07 09/10/16 05:07 Labs: Short CBC 09/10/16 Range/Units 05:07 WBC 5.1 (4.3-11.1) K/mcL Hgb 13.5 (12.9-16.9) g/dL Hct 39.2 (37.5-50.1) % Plt Count 203 (140-400) K/mcL Neutrophils # 2.1 (1.6-8.9) K/mcL BMP 09/10/16 05:07 Sodium 138 Potassium 3.5 Chloride 104 Carbon Dioxide 25 BUN 9 Creatinine 0.81 Glucose 140 H Calcium 9.0 Cardiac Enzymes 09/10/16 09/10/16 09/10/16 Range/Units 05:07 08:55 14:41 Troponin I 1.73 H* 1.72 H* 0.94 H* (0-0.03) ng/mL - ABG Interpretation ABG results: PT/INR, D-dimer PT 11.9 Seconds (9.4-12.1) 09/09/16 21:42 - Attending Attestation I examined this patient and my medical decision-making was reviewed with the Resident Physician on 09/10/16. I agree with the documented findings, disposition and treatment plan as described except to the extent set forth below. Mr Page was admitted earlier today for acute NSTEMI. He has been seen by cardiology and awaiting plan Exam Alert and comfortable Continue current plan of care.
--- NOTE | 2016-09-10 15:01 | ECHO - Doppler Report ---
Echocardiogram Name: Owen Tomlin Date of Study: 09/10/2016 Date: 1955 Ht: 72.0 in Medical Record#: [id number] Age: 61 Wt: 241.0 lb Gender: Male BSA: 2.31 Order #: [id number] Location: [facility] Room #: 2NE27 Reading Physician: Gaston Corbett MD, [facility] Beauty Sales Consultant: Facundo Paiz RDCS Ordering Physician: Nataliia Dunn MD Primary Physician: Rudi Gutierres DO Indications: Chest pain, Elevated Troponin Impressions: Normal LV systolic function, LVEF 60-65%. Normal left ventricular diastolic function. Normal right ventricular size and function. No significant valvular dysfunction. No evidence of pulmonary hypertension. Left Ventricular Wall Motion: Rest Echo Findings All wall segments showed normal motion. Findings: Study Quality * Technically adequate exam. ECG Findings * Normal sinus rhythm. Left Ventricle * Normal LV systolic function, LVEF 60-65%. * Normal LV chamber size and wall thickness. * Normal left ventricular diastolic function. Right Ventricle * Normal right ventricular size and function. Left Atrium * Normal left atrial size. Right Atrium * Normal right atrial size. Aorta * Normally sized aortic root. Pericardium * There is no pericardial effusion present. IVC * The IVC is not dilated. Aortic Valve * Trileaflet aortic valve. * No aortic stenosis. * No aortic regurgitation. Mitral Valve * Normal mitral valve structure. * No mitral stenosis. * Trace mitral regurgitation. Tricuspid Valve * Normal tricuspid valve structure. * No tricuspid stenosis. * Trace tricuspid regurgitation. * No evidence of pulmonary hypertension. Pulmonic Valve * Pulmonic valve not well visualized. * No pulmonic stenosis. * No pulmonic regurgitation. History Hypertension Diabetes Hypercholesteremia Family History of CAD Measurements: BP: 152/ 82 2D Normal Values RVIDd: 3.80 cm IVSd: .80 cm 0.6 - 1.0 cm LVIDd: 5.60 cm 3.7 - 5.6 cm LVPWd: .90 cm 0.6 - 1.1 cm LVIDs: 3.60 cm 1.5 - 3.6 cm AO: 3.30 cm < 4.0 cm LA volume: 61 Mitral Valve Peak E:.76 m/sec Peak A:.81 m/sec E/A Ratio:0.9 Peak E' Lat Oliver:13.7 cm/s Peak E' Med Oliver:8.86 cm/s E/E' Lat Ratio:5.6 E/E' Med Ratio:8.6 Tricuspid Valve TV Regurg Peak Grad: 25.00mmHg TV Regurg Peak Oliver: 2.50m/sec Updated by Gaston Corbett MD, [facility] on 09/10/2016 2:55:19 PM electronically signed on 09/10/2016 2:55:47 PM with status of Final Wall Motion Conteh: 1=Normal, 2=Hypokinesis, 3=Akinesis, 4=Dyskinesis, 5=Aneurysmal, 6=Hyperkinetic, X=Not Visualized (Blank)=Missing
[2016-09-10] MEDS: Levofloxacin 750 MG/150 ML 750 MG/150 ML BAG IVPB SCH (17:07)
[2016-09-10] MEDS: traZODone 50 MG TABLET PO SCH (20:23)
--- NOTE | 2016-09-10 20:39 | Electrocardiograph Report ---
[place] [address] Test Date: 2016-09-09 Pat Name: Owen Tomlin [facility] M Fpga Engineer: TIA : 1955 Requested By: Huan Smith Order Number: [id number] Reading MD: Chetan Espinosa MD Measurements Intervals [place] Rate: 67 P: 49 LA: 147 QRS: 22 QRSD: 84 T: 36 QT: 400 QTc: 415 Interpretive Statements SINUS RHYTHM Electronically Signed On 09-10-2016 20:38:05 EDT by Chetan Espinosa MD
[2016-09-11 05:53] LABS: Basophils % 0.6 %; Eosinophils # 0.2 K/mcL (0.0-0.6); Eosinophils % 3.5 %; Hematocrit 42.4 % (37.5-50.1); Hemoglobin 14.3 g/dL (12.9-16.9); Immature Granulocytes % 0.6 % (0-4); Lymphocytes # 2.7 K/mcL (0.6-4.6); Mean Corpuscular HGB Conc 33.7 g/dL (31.6-35.5); Mean Corpuscular Hemoglobin 31.8 pg (28.0-33.3); Mean Corpuscular Volume 94.2 fL (83.0-100.0); Mean Platelet Volume 10.2 fL (9.4-12.4); Monocytes # 0.7 K/mcL (0.0-1.3); Monocytes % 9.9 %; Neutrophils # 3.1 K/mcL (1.6-8.9); Platelet Count 231 K/mcL (140-400); Red Cell Distribution Width 11.7 % (11.5-14.5); Segmented Neutrophils % 45.4 %
[2016-09-11 07:48] LABS: BUN/Creatinine Ratio 14 (6-26); Blood Urea Nitrogen 13 mg/dL (8-26); Calcium 9.9 mg/dL (8.6-10.8); Carbon Dioxide 23 mEq/L (19-29); Chloride 103 mEq/L (98-109); Glucose 137 mg/dL (70-99); Osmolality,Calculated 288 (280-300); Sodium 138 mEq/L (136-145); eGFR For African Americans > 60 (> 60); eGFR For Non-African Americans > 60 (> 60)
[2016-09-11] MEDS: Insulin LISPRO 300 UNITS/3 ML VIAL SQ SCH ×4 (08:29→22:03)
[2016-09-11] MEDS: (Fish Oil 1,000 Mg Softgel) PO SCH (08:32)
[2016-09-11] MEDS: hydroCHLOROthiazide 25 MG TABLET PO SCH (08:39)
[2016-09-11] MEDS: Metoprolol 100 MG TABLET PO SCH ×2 (08:39→19:47)
[2016-09-11] MEDS: Spironolactone 25 MG TABLET PO SCH (08:39)
[2016-09-11] MEDS: Aspirin Enteric Coated 81 MG Tablet PO SCH (08:39)
[2016-09-11] MEDS: Fluticasone Propionate Nasal 50 MCG/SPRAY BOTTLE NS SCH (08:39)
[2016-09-11] MEDS: Levofloxacin 750 MG/150 ML 750 MG/150 ML BAG IVPB SCH (08:39)
[2016-09-11] MEDS: Heparin 25,000 UNIT/500 ML D5W 25,000 UNIT/500 ML MLS IVC SCH ×2 (08:40→22:03)
[2016-09-11] MEDS ORDERED: Spironolactone 25 MG TABLET PO SCH (09:00)
--- NOTE | 2016-09-11 09:07 | Pre-Sedation Evaluation ---
Pre-sedation evaluation - Pre-sedation checklist Date of procedure: 09/11/16 Procedure: [facility] Recent Vitals: Last Vital Signs Temp 98.4 F 09/11/16 06:53 Pulse 64 09/11/16 06:53 Resp 16 09/11/16 06:53 BP 133/84 09/11/16 06:53 Pulse Ox 94 09/11/16 06:53 H&P (including ROS) documented in medical record: Yes Previous reaction to sedatives/anesthetics: No Dietary Status: NPO after Midnight Airway Assessment: Patient can open mouth completely, TMJ function normal Dentition: No loose teeth or bridges ASA Classification *see protocol: CLASS II-Mild systemic disease Plan of Care: Pt appropriate candidate for procedure/moderate/conscious sedation , Risks/benefits of procedure/sedation discussed w/ patient/family
--- NOTE | 2016-09-11 09:09 | Event Note ---
Date of Encounter: 09/11/16 Time of Encounter: 08:45 - Cardiology Event Note Patient scheduled for LHC today. Risk versus benefits of LHC explained to patient and family. Patient and family state understanding and agree with LHC. Of note, patient is scheduled to have oncology evaluation and work up for possible recurrence of prostate cancer. Patient is scheduled next week for oncology evaluation. Discussed and reviewed with , if stenting is needed will use bare metal due to pending ocology evaluation and possible need for biopsy/surgery. Troponin peak this admission 1.73. ON asa, statin, beta blokcer , ARB. ON heparin drip. Further recommendations pending LHC.
--- NOTE | 2016-09-11 09:32 | Internal Med Progress Note ---
<Janice Robison - Last Filed: 09/11/16 10:08> Date of Encounter: 09/11/16 Time of Encounter: 08:45 - Assessment and plan (1) Elevated troponin Current Visit: Yes Status: Acute Assessment and plan: - First troponin at 0.04 but elevated to 1.73, then 1.72 and trend down to 0.94 - Currently on aspirin, statin, beta ibis, ARB and heparin drip. - Echo on 09/10/16 found LVEF 60-65% with normal LV diastolic dysfunction and no significant valvular dysfunction. - Given patient's chest pain, elevated troponin and multiple risk factors, LHC is recommended by cardiology and patient & his family agree to proceed. - Scheduled LHC today. - Closely monitor with telemetry. (2) Pneumonia Current Visit: Yes Status: Acute Assessment and plan: - Patient still has some productive cough with greenish sputum despite of being on azithromycin prior to admission. - CXR showed focal ground-glass RUL airspace opacification suggestive of developing pnemonia vs. atelectasis. - Pending sputum culture with gram stain, urine antigens for Legionella & S. pneumoniae. - Improves as patient reports better breathing and cough. - Continue levofloxacin for community acquired pneumonia and de-escalate later based on clinical findings and/or culture result. Qualifiers: Pneumonia type: due to unspecified organism Laterality: right Lung location: upper lobe of lung Qualified Code(s): J18.1 - Lobar pneumonia, unspecified organism (3) Chest pain Current Visit: Yes Status: Acute Assessment and plan: - Right-sided chest pain on admission. No modifying factors noted. - Likely secondary to pneumonia but cannot completely rule out cardiac cause, especially given his elevated troponin. - Significantly improves as patient reports no more chest pain. Qualifiers: Chest pain type: unspecified Qualified Code(s): R07.9 - Chest pain, unspecified (4) Essential hypertension Current Visit: Yes Status: Chronic Assessment and plan: - Continue current antihypertensive regimen. (5) Diabetes mellitus Current Visit: Yes Status: Chronic Assessment and plan: - Insulin sliding scale with routine glucose monitoring. 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 - Will have patient follow up with oncology outpatiently. - Subjective Interval history: No significant event overnight. Patient was seen and examined this morning. Patient reports no chest pain or shortness of breath. The productive cough is better compared to yesterday. Patient denies fever, chills, nausea, vomiting, diarrhea, lightheadedness, syncope, diaphoresis. - Constitutional Vitals: Temp Pulse Resp BP Pulse Ox 98.4 F 64 16 133/84 96 09/11/16 06:53 09/11/16 06:53 09/11/16 07:39 09/11/16 07:39 09/11/16 07:39 General appearance: Present: cooperative, A&O X 3, no acute distress, answers questions appropriately - Head Head exam: Present: atraumatic, normocephalic - Eye Eye exam: Present: EOMI, PERRL, conjuntiva pink, sclera anicteric - Neck Neck exam general surgery: Present: supple, trachea midline. Absent: lymphadenopathy - Respiratory Respiratory exam: Present: CTAB. Absent: accessory muscle use, rales, rhonchi, wheezes - Cardiovascular Cardiovascular exam: Present: RRR, +S1, +S2. Absent: diastolic murmur, gallop, rubs, systolic murmur - GI/Abdominal GI/Abdominal exam: Present: normal bowel sounds, soft, no peritoneal signs. Absent: distended, tenderness - Extremities Exam Extremities exam: Present: warm, radial pulses palpable and symetrical. Absent : calf tenderness, cyanotic, pedal edema - Neurological Exam Neurological exam: Present: CN II-XII intact, oriented X3, no focal deficits. Absent: pronater drift, facial droop, speech deficit - Skin Skin exam: Present: dry, intact, warm Internal Medicine: Result - Labs CBC & Chem 7: 09/11/16 04:15 09/11/16 07:26 Labs: Short CBC 09/11/16 Range/Units 04:15 WBC 6.9 (4.3-11.1) K/mcL Hgb 14.3 (12.9-16.9) g/dL Hct 42.4 (37.5-50.1) % Plt Count 231 (140-400) K/mcL Neutrophils # 3.1 (1.6-8.9) K/mcL BMP 09/11/16 07:26 Sodium 138 Potassium 4.0 Chloride 103 Carbon Dioxide 23 BUN 13 Creatinine 0.96 Glucose 137 H Calcium 9.9 Cardiac Enzymes 09/10/16 09/10/16 Range/Units 08:55 14:41 Troponin I 1.72 H* 0.94 H* (0-0.03) ng/mL - ABG Interpretation ABG results: PT/INR, D-dimer PT 11.9 Seconds (9.4-12.1) 09/09/16 21:42 Consult Discharge Plan - Plan Instructions: Chest Pain (DC), Diabetes Mellitus Type 2 in Adults (DC), Chronic Hypertension (DC), Pneumonia (DC) Referrals: Rudi Gutierres DO [Primary Care Provider] - 09/17/16 11:30 am <Ata Guerrero - Last Filed: 09/11/16 18:58> Date of Encounter: 09/11/16 - Constitutional Vitals: Temp Pulse Resp BP Pulse Ox 98.3 F 60 16 143/84 95 09/11/16 15:09 09/11/16 18:45 09/11/16 18:45 09/11/16 18:45 09/11/16 18:15 Internal Medicine: Result - Labs CBC & Chem 7: 09/11/16 04:15 09/11/16 07:26 Labs: Short CBC 09/11/16 Range/Units 04:15 WBC 6.9 (4.3-11.1) K/mcL Hgb 14.3 (12.9-16.9) g/dL Hct 42.4 (37.5-50.1) % Plt Count 231 (140-400) K/mcL Neutrophils # 3.1 (1.6-8.9) K/mcL BMP 09/11/16 07:26 Sodium 138 Potassium 4.0 Chloride 103 Carbon Dioxide 23 BUN 13 Creatinine 0.96 Glucose 137 H Calcium 9.9 - ABG Interpretation ABG results: PT/INR, D-dimer PT 11.9 Seconds (9.4-12.1) 09/09/16 21:42 - Attending Attestation I examined this patient and my medical decision-making was reviewed with the Resident Physician on 09/11/16. I agree with the documented findings, disposition and treatment plan as described except to the extent set forth below. Mr. Page is currently in observation for chest pain and NSTEMI. Mr. Page is to go for cath today. Otherwise he is doing OK Exam Alert. Comfortable Heart reg No wheeze I/P 1. Chest pain 2. Pneumonia Further diagnoses and plan as above.
[2016-09-11] MEDS: Gabapentin 300 MG CAPSULE PO SCH ×2 (15:27→19:47)
[2016-09-11] MEDS ORDERED: Verapamil 5 MG/2 ML VIAL ONE (16:09)
[2016-09-11] MEDS ORDERED: *HR* Heparin 10,000 UNIT/10 ML VIAL ONE (16:10)
[2016-09-11] MEDS ORDERED: Nitroglycerin 1,000 MCG/10 ML VIAL IV ONE (16:10)
[2016-09-11] MEDS ORDERED: 0.9 % Sodium Chloride 1,000 ML ONE ×2 (16:10→16:40)
[2016-09-11] MEDS ORDERED: Heparin 1,000 UNITS/500 mL NS 500 ML ONE (16:10)
[2016-09-11] MEDS ORDERED: *HR* Midazolam HCl 2 MG/2 ML VIAL ONE ×2 (16:39→16:57)
[2016-09-11] MEDS ORDERED: *HR* FentaNYL (PF) 100 MCG/2 ML VIAL ONE ×2 (16:39→17:24)
[2016-09-11] MEDS ORDERED: Tirofiban 12.5 MG/250ML 12.5 MG/250 ML BAG ONE (17:07)
[2016-09-11] MEDS ORDERED: *HR* Morphine 2 MG/ML SYRINGE IVP PRN (17:23)
--- NOTE | 2016-09-11 17:23 | Event Note ---
Date of Encounter: 09/11/16 Time of Encounter: 17:00 - Cardiology Event Note PCI RCA mid 99% with thrombus. 4.5 Bare metal stent. Otherwise mild disease with normal EF.
[2016-09-11] MEDS ORDERED: Nitroglycerin Spray 4.9 GM BOTTLE ONE (17:29)
[2016-09-11] MEDS ORDERED: Tirofiban 12.5 MG/250ML 12.5 MG/250 ML BAG IVC SCH (17:30)
[2016-09-11] MEDS ORDERED: Nitroglycerin 25 MG/250 ML INFUS..BTL IVC ONE (17:41)
--- NOTE | 2016-09-11 17:49 | Invasive Diagnostic Lab Proc ---
Name: Owen Tomlin Date of Study: 09/11/2016 Date: 1955 Ht: 72.0in Medical Record#: [id number] Age: 61 Wt: 240.30lb Gender: Male BSA: 2.3 Order #: [id number] BMI: 32.55 Physicians Procedure Physician: Chetan Espinosa MD, [facility] Referring MD: Referring MD: Staff Name Position Time In [facility] RT (R) Monitor 04:57 PM Noa Wall RN Insurance Salesperson 04:57 PM Tabitha Parker RT (R) Scrub 04:57 PM Indications Indication Non-Stemi Procedures Performed Procedure L HRT ARTERY/VENTRICLE ANGIO PRQ CARD BM STENT W/ANGIO 1 VSL Pre-Procedure Checklist Informed consent is complete signed and on chart. H\\T\\P is on chart. ID band is on and ID verified with patient. Patient NPO for procedure The procedure was described for the patient and questions were answered. Blood Pressure: 141/81 ECG is on chart. Rhythm: NSR Plan of Care Patient will tolerate the procedure without complications. Adequate level of comfort will be maintained. Hemodynamics will remain stable Patient will recover from procedure without complications. Respiratory function will be maintained. Cardiac rhythm will remain stable. Patient temperature will be maintained. Patient and/or family have verbalized understanding of the procedure. Patient Education Chief Complaint/Reason for Test: Cardiac Cath Developmental Category: Adult (18-64 years) Developmentally Appropriate for Age: Yes Learning Barriers: None Education Needs: Procedure Education Method: Verbal Information Taught: Cardiac Cath Educational Evaluation: Able to repeat information Intravenous Access Time IV Size Location DC'd Fluid/Drip Rate Units RN 20g 1 04/30" Patent On Arrival Rt Antecubital 0.9NaCl 25 ml/hr Noa Wall RN Allergies Penicillins lisinopril Vital Signs Time BP (mmHg) HR (bpm) O2 Sat. RR (bpm) LOC 141 / 81 69 96 % 16 5 = Fully awake and oriented or at pre-proc level 04:51 PM 141 / 81 63 93 % 23 04:56 PM 145 / 90 66 96 % 13 05:01 PM 121 / 73 82 95 % 05:06 PM 127 / 69 65 93 % 18 05:11 PM 119 / 64 67 95 % 13 05:16 PM 127 / 75 66 95 % 17 05:21 PM 158 / 85 59 96 % 18 Procedural Medications Time Medication Dose Units Method Given By 04:57 PM Oxygen 2 L/min nasal cannula Noa Wall RN 04:57 PM Versed 2 mg Intravenous [place] RN 04:58 PM Fentanyl 50 mcg Intravenous Noa Wall RN 04:58 PM Lidocaine 2% 1 ml Subcutaneous Chetan Espinosa MD, FAC 04:58 PM Heparin 2000 units Nitroglycerin 200 mcg Verapamil 2.5 mg Intraarterial Chetan Espinosa MD, FACC 05:00 PM Versed 1 mg Intravenous Noa Wall RN 05:00 PM Fentanyl 25 mcg Intravenous Noa Wall RN 05:00 PM Oxygen 4 L/min nasal cannula Noa Wall RN 05:08 PM Heparin 2000 units Intravenous Noa Wall RN 05:10 PM Aggrastat Bolus: 54 ml Intravenous Noa Wall RN 05:11 PM Aggrastat 5mg/100ml 19.5 ml Intravenous Nao Wall RN 05:23 PM Plavix 600 mg Orally Noa Wall RN 05:23 PM Fentanyl 50 mcg Intravenous [place] banerjee RN 05:31 PM Nitroglycerin 400 mcg Sublingual Noa Wall RN 05:40 PM Nitroglycerin 5 mcg/min Intracoronary Noa Wall RN ASA Classification: CLASS II- Mild systemic disease (i.e. well-controlled diabetes, hypertension, asthma, cigarette smoking) Abby Score Preprocedure Postprocedure Activity 2- Moves 4 extremities sustained head lift Activity 2- Moves 4 extremities sustained head lift Circulation 2- SBP +/= 20 points of pre-anesthetic level Circulation 2- SBP +/= 20 points of pre-anesthetic level Consciousness 2- Awake and alert oriented x 3 Consciousness 2- Awake and alert oriented x 3 O2 Saturation 2- Able to maintain O2 satruation of 92% on room air O2 Saturation 2- Able to maintain O2 satruation of 92% on room air Respiratory 2- Able to deep breathe and cough well Respiratory 2- Able to deep breathe and cough well Total Score 10 Total Score 10 Contrast Agent: Isovue Diagnostic Contrast: 102 ml Total Contrast: 102 ml Fluoro Dose: 540 mGy Activated Clotting Time Time Seconds to Clot 05:07 PM 215 Procedure Log Time Note Enter By 04:48 PM CathStat 04:48 PM Vitals capture started with the following parameters, Patient=Adult, Interval=5 min, Initial Bsdfpuew=729 mmHg, Deflation Rate=5 mmHg, Cuff placed on Right Arm 04:48 PM Recorded ECG: HR=69 Condition=Condition 1 04:50 PM Vitals capture started with the following parameters, Patient=Adult, Interval=5 min, Initial Lmvwllbd=148 mmHg, Deflation Rate=5 mmHg, Cuff placed on Right Arm 04:51 PM HR=63 bpm, GRBA=523/81 mmhg, SpO2=93.0 %, Resp=23 B/min 04:56 PM HR=66 bpm, KIBW=095/90 mmhg, SpO2=96 %, Resp=13 B/min 04:57 PM Pt arrived to crime lab technician 2 at 16:57 tsites 04:57 PM Tabitha Bell RT (R) Position: Monitor Time in: 16:57 tsites 04:57 PM Noa Wall RN Position: Insurance Salesperson Time in: 16:57 tsites 04:57 PM Tabitha Parker RT (R) Position: Scrub Time in: 16:57 tsites 04:57 PM Patient charges- Angio tray pack, Navilyst 3mm J, Pulse Oximetry and ACIST tubing and transducer tsites 04:57 PM Physician arrived 16:57 tsites 04:57 PM Meet and greet completed tsites 04:57 PM Sign in performed according to hospital policy. tsites 04:57 PM Procedure start 16:57 tsites 04:57 PM Time: 16:57 Oxygen on at 2 L/min per nasal cannula by Noa Wall RN tsites 04:57 PM Hair removed from procedure site in holding area using clippers. Right wristandn right groin prepped with Chloraprep by Noa Wall RN, safety strap applied then patient was draped. Skin intact. tsites 04:58 PM Time: 16:57 Versed 2 mg Intravenous Given by Noa Wall RN tsites 04:58 PM Time: 16:58 Fentanyl 50 mcg Intravenous Given by Noa Wall RN tsites 04:58 PM Time out performed according to hospital policy tsites 04:58 PM Time: 16:58 1 ml Lidocaine 2% to right radial Subcutaneous Given by Chetan Espinosa MD, [facility] tsites 04:58 PM Access obtained by percutaneous puncture. 6Fr 10cm Terumo Glidesheath sheath placed in right Radial artery. [id number] tsites 04:58 PM Time: 16:58 Patient given 2000 units heparin 200 mcg Nitroglycerin, and 2.5 mg Verapamil Intraarterial by Chetan Espinosa MD, [facility] tsites 04:59 PM 5Fr FR 4 catheter inserted over the wire [facility] tsites 04:59 PM RCA angiography performed in multiple views. tsites 05:00 PM wire reinserted catheter removed tsites 05:00 PM Time: 17:00 Versed 1 mg Intravenous Given by Noa Wall RN [facility] 05:00 PM Time: 17:00 Fentanyl 25 mcg Intravenous Given by Noa Wall RN [facility] 05:00 PM Time: 17:00 Oxygen on at 4 L/min per nasal cannula by Noa Wall RN [facility] 05:01 PM 5Fr FL3.5 catheter inserted over the wire [id number] tsites 05:01 PM HR=82 bpm, AESA=226/73 mmhg, SpO2=95.0 % 05:02 PM LCA angiography performed in multiple views. tsites 05:02 PM Recorded Pressure: Ao, HR=77, Condition=Condition 1 (Aorta) Ao 114/84/99 05:02 PM PCI Status Urgent tsites 05:03 PM Clinical Presentation: Non-STEMI tsites 05:04 PM wire reinserted catheter removed tsites 05:04 PM 5Fr Pigtail catheter inserted over the wire [facility] tsites 05:04 PM Catheter selectively placed in left ventricle tsites 05:04 PM Bolus angiogram of left Ventricle complete: 10 ml/sec for a total of 25 mls tsites 05:04 PM Recorded Pressure: LV, HR=65, Condition=Condition 1 (Left Ventricle) LV 125/-13/12 05:05 PM Recorded Pressure: LV, Ao, HR=68, Condition=Condition 1 (Left Ventricle) LV 133/1/14, (Aorta) Ao 124/73/94 05:05 PM wire reinserted catheter removed tsites 05:06 PM Coronary Dominance: right tsites 05:06 PM PCI lesion in Mid RCA. tsites 05:06 PM HR=65 bpm, RCYM=062/69 mmhg, SpO2=93.0 %, Resp=18 B/min 05:06 PM Lesion found in Mid RCA. Pre Stenosis: 99 Pre VANESSA Flow: 3: Complete and Brisk Flow/Perfusion tsites 05:07 PM 6Fr Im Runway guide catheter was used to cannulate the PCI vessel successfully. reused? No tsites 05:08 PM At 17:07 the ACT was 215 seconds. tsites 05:08 PM Time: 17:08 Heparin 2000 units Intravenous Given by Noa Wall RN tsites 05:08 PM 2.5 mm x 12 mm Emerge Monorail balloon across target lesion- successful. reused? No tsites 05:09 PM .014 PT Graphix 182cm guide wire across target lesion- successful. reused? No tsites 05:11 PM HR=67 bpm, ZCRI=138/64 mmhg, SpO2=95 %, Resp=13 B/min 05:11 PM Time: 17:10 Aggrastat Bolus: 54 ml Intravenous Given by Noa Wall RN Gonzalez pump tsites 05:11 PM Time: 17:11 Aggrastat 5mg/100ml 19.5 ml Intravenous Given by Noa Wall RN Gonzlaez pump tsites 05:12 PM Balloon inflated @ 14 regla for 15 seconds tsites 05:12 PM Balloon catheter removed intact. tsites 05:13 PM 4.5mm x 20mm Rebel [employer] bare metal stent across target lesion- successful Lot #[id number] tsites 05:14 PM Stent deployed @ 12 regla for 14 seconds tsites 05:15 PM Stent delivery system removed intact. tsites 05:15 PM 4.5 mm x 12mm NC Emerge balloon across target lesion- successful. reused? No tsites 05:16 PM HR=66 bpm, OVKO=594/75 mmhg, SpO2=95.0 %, Resp=17 B/min 05:16 PM Recorded Pressure: Ao, HR=73, Condition=Condition 1 (Aorta) Ao 124/80/100 05:16 PM Balloon inflated @ 16 regla for 13 seconds tsites 05:16 PM Balloon inflated @ 16 regla for 9 seconds tsites 05:17 PM Guide wire removed intact. tsites 05:17 PM Balloon catheter removed intact. tsites 05:18 PM Procedure completed at 17:18 tsites 05:19 PM Guide catheter removed intact. tsites 05:20 PM Sign out completed: Radiation Dose 540 mGy Fluoro Time: 540 Isovue 370 - 500ml contrast 102 ml given by Chetan Espinosa MD, FACC. Complications: NoneCardiac Rehab Consult needed: YesConfirmed administered medications: Yes tsites 05:20 PM Isovue 370 - 500ml,1 Bottle(s) used. tsites 05:20 PM Arterial sheath pulled, Vasc Band closure device used and was Successful S/N. tsites 05:20 PM 12 ml air in Vasc Band. tsites 05:20 PM Post ECG NSR tsites 05:20 PM Post Blood Pressure 127/75 tsites 05:21 PM 17:20 Post Pulses Rt Radial 2+ tsites 05:21 PM HR=59 bpm, TPWZ=516/85 mmhg, SpO2=96 %, Resp=18 B/min 05:22 PM Information taught Cardiac Cath and PCI tsites 05:22 PM Education needs Procedure, Plan of Care, and Responsibilities of Patient in Care tsites 05:22 PM Learning barriers :None tsites 05:22 PM Education Methods Verbal tsites 05:22 PM Education evaluation Able to repeat information tsites 05:23 PM Site status No bleeding/hematoma - Rt Wrist as reported by Tabitha Parker RT (R) at 17:22 tsites 05:23 PM Time: 17:23 Plavix 600 mg Orally Given by Noa Wall RN tsites 05:23 PM Time: 17:23 Fentanyl 50 mcg Intravenous Given by Noa Wall RN tsites 05:26 PM Vitals capture stopped. 05:32 PM Time: 17:31 Nitroglycerin 400 mcg Sublingual Given by Noa Wall RN tsites 05:32 PM pt states 6/10 chest pain prior to nitro spray. tsites 05:32 PM patient states some relief 4/10 current corine.. tsites 05:32 PM ekg done at bedside in the procedure lab tsites 05:33 PM Report given to tim SERRATO Pt taken to E Room #27. 17:33 tsites 05:33 PM Delay to floor No tsites 05:33 PM Patient out of room: 17:33 tsites 05:33 PM Family placed in consult room. tsites 05:34 PM Lesion found in Proximal LAD. Pre Stenosis: 50 Pre VANESSA Flow: tsites 05:35 PM Proximal Left Anterior Descending Coronary Artery with 50% stenosis. If graft is supplying this territory, 0 % stenosis. tsites 05:35 PM Right Coronary, Right Posterior Descending Arteries with Right Posterolateral and Acute Marginal branches with 99 % stenosis. If graft is supplying this area, 0 % stenosis tsites 05:40 PM Time: 17:40 Nitroglycerin 5 mcg/min Intracoronary Given by Noa Wall RN tsites Complications Complication None Hemodynamics Pressures Site Systolic/A Wave Diastolic/V Wave Mean AO 114 84 99 LV 125 -13 12 LV 133 1 14 AO 124 73 94 AO 124 80 100 Post Procedure Information Blood Pressure: 127/75 mmHg Rhythm: NSR Post procedural instructions were given Closure Device Time Device Success/Fail 09/11/2016 5:34:00 PM Mechanical Compression Successful Site Checks Time Location Status Staff Sheath In? Note 05:22 PM Rt Wrist No bleeding/hematoma Tabitha Parker RT (R) Pulses Time Site Pre-Procedure Post-Procedure Note Bilateral DP \\T\\ PT 1+ Bilateral radial 2+ 5:20:00 PM Rt Radial 2+ Updated by Tabitha Bell RT (R) on 09/11/2016 5:42:22 PM Tabitha Bell RT electronically signed on 09/11/2016 5:43:29 PM with status of Final
[2016-09-11] MEDS: Cholecalciferol (D-3) 1,000 UNIT TABLET PO SCH (18:12)
--- NOTE | 2016-09-11 18:56 | Invasive Diagnostic Lab ---
Name: Owen Tomlin Date of Study: 09/11/2016 Date: 1955 Ht: 183.0 cm /72.0 in Medical Record#: [id number] Age: 61 Wt: 109. kg / 240.30 lb Account/Order#: [id number] Gender: Male BSA: 2.3 Order #: [id number] Fluoro Dose: 540 mGy BMI: 32.55 Procedure Physician: Chetan Espinosa MD, [facility] Referring MD: Referring MD: Procedures Performed: LEFT HEART CATH Stent w/ PTCA Single Major Vessel Indications: Non-Stemi Impressions: There is severe one vessel coronary artery disease. The left ventricle is normal and has normal contractility EF 65% Patient had successful PTCA/Bare Metal Stent placement in the mid RCA (probable metastatic prostate cancer). Recommendations: Optimal medical therapy of patient's disease. Aggressive risk factor modification. Patient being referred for cardiac rehab. History/Risk Factors: cancer pneumonia Diabetes Hypertension Current/Recent Smoker Procedure Access obtained in the right Radial artery by percutaneous puncture Patient had successful PTCA/Bare Metal Stent placement in the mid RCA. Complications: None Contrast: Isovue 102ml Closure Device: Mechanical Compression Hemodynamics: Pressures Site Systolic/ A Wave Diastolic/ V Wave End Diastolic/ Mean HR AO 114 84 99 77 LV 125 -13 12 65 LV 133 1 14 69 AO 124 73 94 68 AO 124 80 100 73 LV Ventriculography Ejection Method: LV Gram Ejection Fraction: 65% Wall Motion: ZAMAN Anterobasal Normal Anterolateral Normal Apical: Normal Inferoapical Normal Inferobasal Normal Coronary Dominance: right Lesion Findings/Interventions * Left Main Coronary Artery The LMCA is angiographically free of disease. * Left Anterior Descending There is a 50% stenosis in the Proximal LAD. There is mild mid LAD disease. * Circumflex The Circumflex has proximal 20% stenosis The 1st Marginal is angiographically free of disease. * Right Coronary Artery - Large dominant vessel There is a 20 mm long, 90% stenosis in the Mid RCA. The lesion has a VANESSA flow of 3 and has thrombus present. An intervention was performed on the Mid RCA with a final stenosis of 0%. There were no lesion complications. The final VANESSA flow was 3. Interventional Device(s) Vessel Segment Type Name Diameter (mm) Length (mm) Mid RCA Balloon Emerge Monorail 2.5 12 Mid RCA Bare Metal Stent Rebel [employer] 4.5 20 Mid RCA Balloon NC Emerge 4.5 12 Updated by Tabithashelby Bell, RT (R) on 09/11/2016 5:42:49 PM Chetan Espinosa MD, FACC electronically signed on 09/11/2016 6:52:53 PM with status of Final
[2016-09-11] MEDS: traZODone 50 MG TABLET PO SCH (19:47)
[2016-09-12 05:06] LABS: Basophils # 0.1 K/mcL (0.0-0.2); Basophils % 0.7 %; Eosinophils # 0.3 K/mcL (0.0-0.6); Hematocrit 41.7 % (37.5-50.1); Hemoglobin 14.4 g/dL (12.9-16.9); Immature Granulocytes % 0.9 % (0-4); Lymphocytes # 2.5 K/mcL (0.6-4.6); Lymphocytes % 26.2 %; Mean Corpuscular HGB Conc 34.5 g/dL (31.6-35.5); Mean Corpuscular Hemoglobin 32.4 pg (28.0-33.3); Mean Corpuscular Volume 93.9 fL (83.0-100.0); Monocytes # 0.9 K/mcL (0.0-1.3); Monocytes % 9.1 %; Neutrophils # 5.7 K/mcL (1.6-8.9); Platelet Count 254 K/mcL (140-400); Red Blood Count 4.44 M/mcL (4.19-5.50); Red Cell Distribution Width 11.5 % (11.5-14.5); Segmented Neutrophils % 60.1 %
[2016-09-12 05:18] LABS: BUN/Creatinine Ratio 14 (6-26); Blood Urea Nitrogen 14 mg/dL (8-26); Calcium 9.4 mg/dL (8.6-10.8); Carbon Dioxide 24 mEq/L (19-29); Chloride 103 mEq/L (98-109); Glucose 139 mg/dL (70-99); Osmolality,Calculated 289 (280-300); Potassium 3.9 mEq/L (3.5-4.5); Sodium 138 mEq/L (136-145); eGFR For African Americans > 60 (> 60); eGFR For Non-African Americans > 60 (> 60)
[2016-09-12 07:00] VITALS: BP 139/94
[2016-09-12] MEDS: Insulin LISPRO 300 UNITS/3 ML VIAL SQ SCH (08:48)
[2016-09-12] MEDS ORDERED: Aspirin 81 MG TAB.CHEW PO SCH (09:00)
[2016-09-12] MEDS: Metoprolol 100 MG TABLET PO SCH (09:04)
[2016-09-12] MEDS: Levofloxacin 750 MG/150 ML 750 MG/150 ML BAG IVPB SCH (09:04)
[2016-09-12] MEDS: Spironolactone 25 MG TABLET PO SCH (09:04)
[2016-09-12] MEDS: Fluticasone Propionate Nasal 50 MCG/SPRAY BOTTLE NS SCH (09:05)
[2016-09-12] MEDS: (Fish Oil 1,000 Mg Softgel) PO SCH (09:05)
[2016-09-12] MEDS: hydroCHLOROthiazide 25 MG TABLET PO SCH (09:05)
[2016-09-12] MEDS: Cholecalciferol (D-3) 1,000 UNIT TABLET PO SCH (09:05)
[2016-09-12] MEDS: Gabapentin 300 MG CAPSULE PO SCH (09:05)
--- NOTE | 2016-09-12 09:11 | Cardiology Progress Note ---
Date of Encounter: 09/12/16 Time of Encounter: 08:30 Assessment and Plan (1) Pneumonia Current Visit: Yes Status: Acute Per cardiology: -Right upper lobe pneumonia per chest x-ray. -Admits to right sided chest pain, productive cough with green sputum, and fever. -On ATB. -Management per primary service. Qualifiers: Pneumonia type: due to unspecified organism Laterality: right Lung location: upper lobe of lung Qualified Code(s): J18.1 - Lobar pneumonia, unspecified organism (2) Chest pain Current Visit: Yes Status: Acute Per cardiology: -Patient admits to right sided chest pain, consistent with pneumonia per chest x -ray. -Denies left sided chest pain. -Denies pain with excertion. -[facility] yesterday. see below. Qualifiers: Chest pain type: unspecified Qualified Code(s): R07.9 - Chest pain, unspecified (3) Elevated troponin Current Visit: Yes Status: Acute Per cardiology: -No known history of CAD, now with NSTEMI. -ELevated troponin 0.04, 1.73, 1.72, 0.94. -[facility] 09/11/16 with 90% RCA with thrombus and successful bare metal stent, 50% LAD , and 20% circumflex lesions. Bare metal stent was placed due to pending prostate cancer mets evaluation. -ON asa, statin, beta ibis, and ARB, and plavix. -Echo with LVEF 60-65%, no significant valvular dusfunction, all cummings with normal motion. -Denies current chest pain. -Right radial access site education give. -Heart healthy diet education given. -Medication compliance with dual anti-platelet therapy for at least 30 days recommended. Patient and family state understanding. -Cardiology will sign off and will follow in outpatient setting. Follow up set. (4) Essential hypertension Current Visit: Yes Status: Chronic Per cardiology: -Known history of HTN. -Hypertensive on admission with SBP 180s. -BPs better controlled now with SBP 120-130s. -On beta ibis and ARB. -Will continue to monitor in outpateint setting. (5) Prostate cancer Current Visit: Yes Status: Chronic Per cardiology: -Known history of prostate CA. -Patient states recurrence. -Follows with oncology. -Reports follow up shceduled next week at [facility]. -Management per primary service. Discussion w patient/family: The assessment and plan as outlined above was discussed with the patient and/or family members who expressed understanding and agreement. All questions were answered. Thank you for involving us in the care of your patient. Please call with any questions. Discussed and reviewed with . Subjective Principal diagnosis: pneumonia/chest pain Interval history: Patient was admitted with pneumonia and chest pain. Patient's troponins elevated. Patient underwent LHC yesterday with successful bare metal stent to RCA. Patient denies chest pain, shortness of breath. Objective Vital Signs, Last 4 Hours Temp Pulse Resp BP Pulse Ox 09/12/16 07:49 16 94 09/12/16 06:56 98.4 F 66 16 139/94 95 General: Conversant, No Apparent Distress HEENT: Atraumatic, Normocephaly, Mucus Membranes Moist Neck: No JVD, Normal carotid pulses Cardiac: Reg Rate and Rhythm, Normal S1 and S2, No Murmur Lungs: Normal Breath Sounds, No Wheeze, Rales, Rhonchi Neuro: Alert and responsive, No focal deficits noted Abdomen: Soft, Non-Tender Skin: No rashes noted on visualized skin, Other (RIght radial access site without hematoma/ecchymosis) Musculoskeletal: No Chest Wall Tenderness Extremities: No Clubbing, No Cyanosis, No Edema, Normal Pulses Results 09/12/16 04:44 09/12/16 04:44 Lab Results Active Medications Acetaminophen (Tylenol) 650 mg PO Q6HR PRN PRN Reason: Mild Pain (1-3) Stop: 03/12/17 02:57 Albuterol Sulfate (Albuterol Inhaler) 2 puff IH [id number] [facility] Stop: 03/12/17 04:01 Last Admin: 09/12/16 07:49 Dose: 2 puff Aspirin (Aspirin) 81 mg PO DAILY [facility] Stop: 03/14/17 09:01 Last Admin: 09/12/16 09:04 Dose: 81 mg Benzonatate (Tessalon) 200 mg PO TID PRN PRN Reason: Cough Clopidogrel Bisulfate (Plavix) 75 mg PO DAILY [facility] Stop: 03/14/17 09:01 Last Admin: 09/12/16 09:05 Dose: 75 mg Dextrose/Water (Dextrose 50% (Syg)) 25 ml IVP AD PRN PRN Reason: Hypoglycemia Stop: 03/12/17 03:02 Fluticasone Propionate (Flonase) 50 mcg NS DAILY [facility] PRN Reason: Protocol Stop: 03/12/17 09:01 Last Admin: 09/12/16 09:05 Dose: 50 mcg Gabapentin (Neurontin) 300 mg PO BID [facility] Stop: 03/12/17 09:01 Last Admin: 09/12/16 09:05 Dose: 300 mg Glucagon (Glucagen) 1 mg IM ONCE PRN PRN Reason: Hypoglycemia Stop: 03/12/17 03:02 Glucose (Gluctose) 15 gm PO ONCE PRN PRN Reason: Hypoglycemia Stop: 03/12/17 03:02 Glucose (Gluctose) 30 gm PO ONCE PRN PRN Reason: Hypoglycemia Stop: 03/12/17 03:02 Heparin Sodium (Porcine) (Heparin) 4,000 unit IVP Q6HR PRN PRN Reason: SEE COMMENTS Stop: 03/11/17 22:20 Heparin Sodium (Porcine) (Heparin) 2,000 unit IVP Q6H PRN PRN Reason: SEE COMMENTS Stop: 03/11/17 22:20 Hydrochlorothiazide (Hydrochlorothiazide) 25 mg PO DAILY [facility] Stop: 03/12/17 09:01 Last Admin: 09/12/16 09:05 Dose: 25 mg Heparin Sodium/Dextrose (Heparin 25,000 Unit/500 Ml D5w) 25,000 unit in 500 mls @ 19.9 mls/hr IVC .Q24H WILLIE; 9.14 UNIT/KG/HR PRN Reason: Protocol Stop: 03/11/17 22:31 Last Admin: 09/11/16 22:03 Dose: Not Given Dextrose (Dextrose 5%) 1,000 mls @ 100 mls/hr IVC .Q10H PRN PRN Reason: HYPOGLYCEMIA Stop: 03/12/17 03:02 Levofloxacin/Dextrose (Levaquin Premix 750mg/150 Ml) 750 mg in 150 mls @ 100 mls/hr IVPB DAILY WILLIE PRN Reason: Protocol Stop: 03/12/17 15:01 Last Admin: 09/12/16 09:04 Dose: 100 mls/hr Insulin Human Lispro (Humalog) 0 units SQ TIDAC WILLIE PRN Reason: Protocol Stop: 03/12/17 07:31 Last Admin: 09/12/16 08:48 Dose: Not Given Insulin Human Lispro (Humalog) 0 units SQ HS WILLIE PRN Reason: Protocol Stop: 03/12/17 21:01 Last Admin: 09/11/16 22:03 Dose: Not Given Losartan Potassium (Cozaar) 100 mg PO DAILY [facility] Stop: 03/12/17 09:01 Last Admin: 09/12/16 09:04 Dose: 100 mg Metoprolol Tartrate (Lopressor) 100 mg PO BID [facility] Stop: 03/12/17 09:01 Last Admin: 09/12/16 09:04 Dose: 100 mg Morphine Sulfate (Morphine Sulfate) 2 mg IVP Q2H PRN PRN Reason: Severe Pain Stop: 03/13/17 17:24 Naloxone HCl (Narcan) 0.4 mg IVP Q2MIN PRN PRN Reason: Opioid Reversal Stop: 03/12/17 02:57 Nitroglycerin (Nitroglycerin) 0.4 mg SL Q5MIN PRN PRN Reason: Chest Pain Stop: 03/11/17 22:18 Omeprazole (Prilosec) 40 mg PO DAILY [facility] Stop: 03/12/17 09:01 Last Admin: 09/12/16 09:05 Dose: 40 mg Ondansetron HCl (Zofran) 4 mg IVP Q8HR PRN PRN Reason: Nausea And Vomiting Stop: 03/12/17 02:57 Pharmacy Profile Note (Patient Taking Own Medication) 0 each PO DAILY [facility] Stop: 03/12/17 09:01 Last Admin: 09/12/16 09:05 Dose: Not Given Simvastatin (Zocor) 40 mg PO HS [facility] Stop: 03/12/17 21:01 Last Admin: 09/11/16 19:47 Dose: 40 mg Spironolactone (Aldactone) 25 mg PO DAILY [facility] Stop: 03/12/17 11:56 Last Admin: 09/12/16 09:04 Dose: 25 mg Tramadol HCl (Ultram) 50 mg PO Q8H PRN PRN Reason: Pain Stop: 03/12/17 02:59 Trazodone HCl (Trazodone) 50 mg PO HS [facility] Stop: 03/12/17 21:01 Last Admin: 09/11/16 19:47 Dose: 50 mg Vitamin D (Vitamin D) 1,000 unit PO DAILY [facility] Stop: 03/12/17 09:01 Last Admin: 09/12/16 09:05 Dose: 1,000 unit Laboratory Tests 09/12/16 04:44 Creatinine 1.01 - Imaging and Cardiology Chest Xray: report reviewed Echo: report reviewed Cardiac cath: report reviewed - EKG Interpretation EKG results cardiology: other (Telemetry reviewed with average HR 63, sinus rhythm, Minimum HR 52. PVCs and one couplet PVCs noted.) Consult Discharge Plan - Plan Instructions: Chest Pain (DC), Diabetes Mellitus Type 2 in Adults (DC), Chronic Hypertension (DC), Pneumonia (DC) Referrals: Rudi Gutierres DO [Primary Care Provider] - 09/17/16 11:30 am
--- NOTE | 2016-09-12 09:42 | Discharge Summary ---
<Janice Robison - Last Filed: 09/12/16 13:35> Date of Encounter: 09/12/16 Time of Encounter: 08:30 - Discharge Diagnosis (1) Elevated troponin Priority: Primary Status: Acute (2) Pneumonia Priority: Primary Status: Acute Qualifiers: Pneumonia type: due to unspecified organism Laterality: right Lung location: upper lobe of lung Qualified Code(s): J18.1 - Lobar pneumonia, unspecified organism (3) Chest pain Priority: Secondary Status: Acute Qualifiers: Chest pain type: unspecified Qualified Code(s): R07.9 - Chest pain, unspecified (4) Essential hypertension Priority: Secondary Status: Chronic (5) Diabetes mellitus Priority: Secondary Status: Chronic Qualifiers: Diabetes mellitus type: type 2 Diabetes mellitus complication status: with unspecified complications Diabetes mellitus terminal carman insulin use: without terminal carman use Qualified Code(s): E11.8 - Type 2 diabetes mellitus with unspecified complications (6) Prostate cancer Priority: Secondary Status: Chronic - Discharge Medications Prescriptions: Nitroglycerin 0.4 mg SL Q5MIN PRN #30 tab.subl PRN Reason: Chest Pain Clopidogrel [Plavix] 75 mg PO DAILY #30 tablet Levofloxacin [Levaquin] 750 mg PO DAILY #3 tablet Home Medications: Acetaminophen [Tylenol] 325 mg PO Q6HR PRN 09/09/16 [History] Albuterol Sulfate [Albuterol Inhaler] 2 puff IH Q4H PRN 09/09/16 [History] Aspirin Enteric Coated [Aspirin EC] 81 mg PO DAILY 09/09/16 [History] Cholecalciferol (D-3) [Vitamin D] 5,000 unit PO DAILY 09/09/16 [History] Fluticasone Propionate Nasal [Flonase] 1 spray NS DAILY 09/09/16 [History] Gabapentin [Neurontin] 300 mg PO BID 09/09/16 [History] Metoprolol [Lopressor] 100 mg PO BID 09/09/16 [History] [place]-3/Dha/Epa/Fish Oil [Fish Oil 1,000 mg Softgel] 1,000 mg PO DAILY 09/09/16 [History] Omeprazole [PriLOSEC] 40 mg PO DAILY 09/09/16 [History] Rosuvastatin Calcium [Crestor] 10 mg PO HS 09/09/16 [History] Spironolact/Hydrochlorothiazid [Aldactazide 25-25 Tablet] 1 each PO DAILY [History] Tramadol HCl [Ultram] 50 mg PO Q8H PRN 09/09/16 [History] metFORMIN [Glucophage] 500 mg PO 0800 09/09/16 [History] traZODone [TraZODone] 50 mg PO HS 09/09/16 [History] Clopidogrel [Plavix] 75 mg PO DAILY #30 tablet 09/12/16 [Rx] Levofloxacin [Levaquin] 750 mg PO DAILY #3 tablet 09/12/16 [Rx] Nitroglycerin 0.4 mg SL Q5MIN PRN #30 tab.subl 09/12/16 [Rx] Allergies/Adverse Reactions: Allergies lisinopril [From Prinivil] Allergy (Verified 09/07/16 13:46) Hives Penicillins [PCN] Allergy (Verified 09/07/16 13:46) Hives Procedures/tests Complete & Pending: Procedures Performed prior 72 hours Category Date Time Status CL Cardiac Catheterization [CL] Routine [facility] 09/11/16 09:04 Completed ECG 12 lead ECG [ECG] Routine Y 09/11/16 17:23 Ordered EKG [ECG 12 lead ECG] [ECG] Stat Y 09/11/16 17:37 Ordered EV echocardiogram Routine Y 09/10/16 04:30 Completed Date of admission: 09/09/16 23:18 Primary care physician: Rudi Gutierres DO Consults: 09/10/16 06:40 Consult to Cardiology [CONS] Routine Comment: Consulting Provider: Pretty Acevedo Reason for Consult: Elevated Troponin, chest pain Call Completed: Yes 09/10/16 10:14 Consult to Cardiac Rehabilitation-Phase1 [CONS] Routine Comment: Reason for Consult: elevated troponin. Call Completed: No Discharging clinician: Janice Robison Anticipated date of discharge: 09/12/16 - Patient Status Disposition: Home, Self-Care Condition: Good Functional capacity at discharge: independent ambulation Overall status at discharge: patient is progressing back to baseline - Discharge Instructions Instructions: Nitroglycerin (By mouth), Levofloxacin (By mouth), Clopidogrel ( By mouth), Chest Pain (DC), Diabetes Mellitus Type 2 in Adults (DC), Chronic Hypertension (DC), Pneumonia (DC) Follow Up With: Pretty Acevedo [Provider Group] - 09/20/16 10:15 am (S/p LHC with mid RCA BMS placed on 09/11/16. Currently seeing oncology for recurrent prostate cancer. Need outpatient cardiology follow-up within 2-4 weeks.) Rudi Gutierres DO [Primary Care Provider] - 09/17/16 11:30 am Additional Instructions: Please continue levofloxacin 750 mg by mouth daily for three more days to finish total 7-day course of antibiotic therapy. Please take aspirin and Plavix (75 mg by mouth daily) for anticoagulation regarding your newly placed bare metal stent. You can use prescribed nitroglycerin 0.4 mg under tongue pill every 5 minutes as needed for your chest pain. Please continue your other home medications including metoprolol, Crestor and blood pressure medications. Please follow up with your primary care physician Dr. Gutierres at 11:30 am on 09/17. Please follow up with [facility] regarding your coronary artery disease and newly placed stent within 2-4 weeks. Please come back to emergency room if you develop chest pain at rest or pain not controlled by nitroglycerin. - Diet and Activity Activity: increase activity as tolerated Diet: diabetic diet, low fat, low cholesterol, low salt diet Hospital course: Mr. Tomlin is a 61 year old male with PMH of HTN, DM and recent recurrence of prostate cancer. Patient presented with complaint of right-sided chest pain, shortness of breath and productive cough. CXR showed focal ground-glass RUL airspace opacification suggestive of developing pnemonia. Patient was admitted for pneumonia on 09/10/16 and started on levofloxacin. Sputum culture preliminarily grew GNR. Patient also had elevated troponin (0.04, 1.73, 1.72, 0.94). Cardiology was consulted. Echo on 09/10/16 found LVEF 60-65% with normal LV diastolic dysfunction and no significant valvular dysfunction. LHC was done on 09/11/16 and found 90% RCA with thrombus, 50% LAD, and 20% circumflex lesions. Due to pending prostate cancer mets evaluation, bare metal stent was placed at mid RCA. Given patient improves on his respiratory symptoms and remains chest pain-free & hemodynamically stable, patient will be discharged home with dual antiplatelet anticoagulation (aspirin and Plavix) and nitroglycerin prn chest pain while continuing his metoprolol, statin and blood pressure medications at home. Patient is instructed to continue levofloxacin 750 mg PO daily for three more days to finish total 7-day course of antibiotic therapy for pneumonia. Patient will have follow-up appointment with his PCP Dr. Gutierres at 11:30 am on 09/17/16. Patient will also follow up with [place] [facility] regarding his coronary artery disease and newly placed stent within 2 -4 weeks. - Time Spent with Patient Total time spent providing and/or coordinating discharge services: Greater than 30 minutes - Constitutional Vitals: Temp Pulse Resp BP Pulse Ox 98.4 F 66 16 139/94 94 09/12/16 06:56 09/12/16 06:56 09/12/16 07:49 09/12/16 06:56 09/12/16 07:49 General appearance: Present: cooperative, A&O X 3, no acute distress, answers questions appropriately - Head Head exam: Present: atraumatic, normocephalic - Eye Eye exam: Present: EOMI, PERRL, conjuntiva pink, sclera anicteric - Neck Neck exam general surgery: Present: supple, trachea midline. Absent: lymphadenopathy - Respiratory Respiratory exam: Present: CTAB. Absent: accessory muscle use, rales, rhonchi, wheezes - Cardiovascular Cardiovascular exam: Present: RRR, +S1, +S2. Absent: diastolic murmur, gallop, rubs, systolic murmur - GI/Abdominal GI/Abdominal exam: Present: normal bowel sounds, soft, no peritoneal signs. Absent: distended, tenderness - Extremities Exam Extremities exam: Present: warm, radial pulses palpable and symetrical. Absent : calf tenderness, cyanotic, pedal edema - Neurological Exam Neurological exam: Present: CN II-XII intact, oriented X3, no focal deficits. Absent: pronater drift, facial droop, speech deficit - Skin Skin exam: Present: dry, intact, warm <Ata Guerrero - Last Filed: 09/12/16 14:32> Date of Encounter: 09/12/16 - Discharge Diagnosis (1) Chest pain Priority: Primary Status: Acute Qualifiers: Chest pain type: chest pain due to myocardial ischemia Ischemic chest pain type: unstable angina pectoris Qualified Code(s): I20.0 - Unstable angina (2) NSTEMI (non-ST elevated myocardial infarction) Priority: Primary Status: Acute (3) Pneumonia Priority: Primary Status: Suspected Qualifiers: Pneumonia type: due to Pneumococcus Laterality: right Lung location: upper lobe of lung Qualified Code(s): J13 - Pneumonia due to Streptococcus pneumoniae (4) Essential hypertension Status: Chronic (5) Diabetes mellitus Status: Chronic Qualifiers: Diabetes mellitus type: type 2 Diabetes mellitus complication status: with unspecified complications Diabetes mellitus terminal carman insulin use: without terminal carman use Qualified Code(s): E11.8 - Type 2 diabetes mellitus with unspecified complications (6) Prostate cancer Status: Chronic Procedures/tests Complete & Pending: Procedures Performed prior 72 hours Category Date Time Status CL Cardiac Catheterization [CL] Routine [facility] 09/11/16 09:04 Completed ECG 12 lead ECG [ECG] Routine Y 09/11/16 17:23 Completed EV echocardiogram Routine Y 09/10/16 04:30 Completed Date of admission: 09/09/16 23:18 Primary care physician: Rudi Gutierres DO Consults: 09/10/16 06:40 Consult to Cardiology [CONS] Routine Comment: Consulting Provider: [facility] Reason for Consult: Elevated Troponin, chest pain Call Completed: Yes 09/10/16 10:14 Consult to Cardiac Rehabilitation-Phase1 [CONS] Routine Comment: Reason for Consult: elevated troponin. Call Completed: No Hospital course: Mr. Tomlin is a 61 year old male - Time Spent with Patient Total time spent providing and/or coordinating discharge services: 35min - Constitutional Vitals: Temp Pulse Resp BP Pulse Ox 98.4 F 66 16 139/94 94 09/12/16 06:56 09/12/16 06:56 09/12/16 07:49 09/12/16 06:56 09/12/16 07:49 - Attending Attestation I examined this patient and my medical decision-making was reviewed with the Resident Physician on 09/12/16. I agree with the documented findings, disposition and treatment plan as described except to the extent set forth below. Mr. Page had cath and stent placement last night. He is doing OK this AM. No fever or chills. Vitals stable Exam Alert. Comfortable Heart reg No wheeze Plan D/C home today Follow with card and PCP
--- NOTE | 2016-09-12 17:36 | Electrocardiograph Report ---
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
== END 2016-09-12 11:12 | disposition home or self-care (01) ==
LOC: EMEROO 20:36 → 2NENU 20:36
PROVIDERS: ADMIT Internal Medicine; ATTEND Internal Medicine